=== PATIENT | male | born 1930 | race Caucasian/White ===

== ENCOUNTER 2017-08-17 04:10 | Inpatient (IN) | payer MEDICARE ==
[~2017-08-17] VITALS: Ht 177.8 cm; Wt 56.2 kg
[2017-08-17] MEDS ORDERED: OXYBUTYNIN CHLOR5 M1 PO (04:23)
[2017-08-17] MEDS ORDERED: ASPIRIN325 MG PO (04:23)
[2017-08-17] MEDS ORDERED: ASPIRIN81 MG PO (04:23)
[2017-08-17] MEDS ORDERED: CARBIDOPA-LEVO1 EACH PO (04:23)
[2017-08-17] MEDS ORDERED: ATORVASTATIN CA20 MG PO (04:23)
[2017-08-17] MEDS ORDERED: NEXIUM40 MG PO (04:23)
[2017-08-17] MEDS ORDERED: SODIUM CHLORIDE 0.9% 1000ML 1,000 ML IV STA (04:28)
[2017-08-17 04:37] LABS: BASOPHILS % 0.2 % (0.0-1.0); EOSINOPHILS # (AUTO) 0.1 (0.0-0.4); EOSINOPHILS % 0.9 % (0.0-6.0); HEMATOCRIT 31.8 % (38.2-49.6); LYMPHOCYTES # (AUTO) 0.9 (1.0-3.2); LYMPHOCYTES % 11.1 % (18.0-39.1); MEAN CORPUSCULAR HEMOGLOBIN 26.6 pg (28-32); MEAN CORPUSCULAR HGB CONC 31.4 g/dL (31-35); MEAN CORPUSCULAR VOLUME 84.6 fL (81-99); MONOCYTES # (AUTO) 0.7 (0.2-0.8); MONOCYTES % 8.8 % (4.4-11.3); NEUTROPHILS # (AUTO) 6.3 (2.1-6.9); NEUTROPHILS % 78.1 % (38.7-80.0); PLATELET COUNT 228 x10e3/uL (140-360); RED BLOOD COUNT 3.76 x10e6/uL (4.3-5.7)
[2017-08-17] MEDS ORDERED: SODIUM CHLORIDE 0.9% 1000ML 1,000 ML ONE (04:37)
[2017-08-17 04:48] LABS: INR 1.17
[2017-08-17 04:49] LABS: PARTIAL THROMBOPLASTIN TIME 34.6 seconds (23.8-35.5)
[2017-08-17 04:58] LABS: ALANINE AMINOTRANSFERASE 7 IU/L (0-55); ALBUMIN 2.8 g/dL (3.5-5.0); ALBUMIN/GLOBULIN RATIO 0.7 (0.8-2.0); ALKALINE PHOSPHATASE 103 IU/L (40-150); ANION GAP 12.6 mmol/L (8-16); BLOOD UREA NITROGEN 31 mg/dL (7-26); BUN/CREATININE RATIO 33 (6-25); CALCIUM 9.5 mg/dL (8.4-10.2); CARBON DIOXIDE 27 mmol/L (22-29); CHLORIDE 107 mmol/L (98-107); CREATINE KINASE 93 IU/L (30-200); CREATININE, SERUM 0.93 mg/dL (0.72-1.25); EST GLOMERULAR FILTRATION RATE > 60 ML/MIN (60-); GLUCOSE 101 mg/dL (74-118); MAGNESIUM 1.8 MG/DL (1.3-2.1); POTASSIUM 3.6 mmol/L (3.5-5.1); SODIUM 143 mmol/L (136-145)
--- NOTE | 2017-08-17 05:09 | Diagnostic Imaging Report ---
History:Altered mental status Comparison studies:None Technique: Axial images were obtained from the skull base to the vertex. Coronal and sagittal images reconstructed from the axial data. Intravenous contrast: None Findings: Scalp/skull: No abnormalities. Extra-axial spaces: No masses. No fluid collections. Brain sulci: Mildly prominent. Ventricles: Mild compensatory dilatation. No hydrocephalus. Parenchyma: Full hypodensities in the supratentorial white matter are small vessel ischemic changes. No masses, hemorrhage, acute or chronic cortical vascular insults. Sellar/suprasellar region: No abnormalities. Craniocervical junction: Patent foramen magnum. No Chiari one malformation. Incidental findings: Atherosclerotic calcifications in the carotid siphons . Mucosal thickening in the ethmoid and maxillary sinuses Impression: No acute abnormalities. Chronic findings: 1. Mild generalized volume loss. 2. Mild supratentorial white matter small vessel ischemic changes. Signed by: Dr. Kar Velasco M.D. on 08/17/2017 5:05 AM
[2017-08-17 05:11] LABS: B-TYPE NATRIURETIC PEPTIDE2 67.5 pg/mL (0-100)
[2017-08-17 05:18] LABS: THYROID STIMULATING HORMONE 1.084 uIU/mL (0.350-4.940)
--- NOTE | 2017-08-17 05:28 | Diagnostic Imaging Report ---
EXAMINATION: CHEST SINGLE (PORTABLE) INDICATION: Altered mental status COMPARISON: None FINDINGS: TUBES and LINES: None. LUNGS: Lungs are well inflated. There are atelectatic changes in the left lung base versus aspiration. There is mild prominence of the central pulmonary vasculature, consistent with pulmonary venous congestion. PLEURA: No pleural effusion or pneumothorax. HEART AND MEDIASTINUM: The cardiomediastinal silhouette is unremarkable. There are atherosclerotic calcifications within the aorta. BONES AND SOFT TISSUES: No acute osseous lesion. Soft tissues are unremarkable. UPPER ABDOMEN: No free air under the diaphragm. IMPRESSION: Airspace opacity in the left lung base compatible with atelectasis versus aspiration. Signed by: Dr. Hudson Graham M.D. on 08/17/2017 5:24 AM
[2017-08-17 06:17] LABS: CLARITY,URINE CLOUDY (CLEAR); COLOR,URINE YELLOW (YELLOW)
[2017-08-17 06:18] LABS: BILIRUBIN,URINE 1+ (NEGATIVE); KETONES,URINE TRACE (NEGATIVE); LEUKOCYTE ESTERASE ,URINE NEGATIVE (NEGATIVE); NITRITE,URINE NEGATIVE (NEGATIVE); PROTEIN,URINE DIPSTICK 1+ (NEGATIVE); URINE UROBILINOGEN 1 mg/dL (0.2 - 1)
[2017-08-17 06:22] LABS: BACTERIA,URINE FEW /HPF; EPITHELIAL CELLS,URINE MODERATE /LPF; RBC,URINE 0-5 /HPF (0-5)
[2017-08-17] MEDS: PIPER-TAZ 3.375 GM 100 ML IV SCH ×3 (06:52→17:35)
--- OUTSIDE RECORDS SUMMARY | 2017-08-17 07:14 | XMS REPORT ---
Author Author [facility] Address Unknown Phone Unavailable Care Team Providers Care Software Quality Assurance Specialist Name Role Phone DEVAN BERGER Unavailable Unavailable Problems This patient has no known problems. Allergies, Adverse Reactions, Alerts This patient has no known allergies or adverse reactions. Medications This patient has no known medications. Results Test Description Test Time Test Comments Text Results Atomic Results Result Comments CT BRAIN WO [place] [address] Patient Name: TARI PONCE MR #: [id number] : 1930 Age/Sex: 87/M Req #: [id number] Adm Physician: Ordered by: DEVAN BERGER MD Report #: [id number] Location: ER Room/Bed: Procedure: [id number] CT/CT BRAIN WO Exam Date: 08/17/17 Exam Time: 442 REPORT STATUS: Signed History:Altered mental status Comparison studies:None Technique: Axial images were obtained from the skull base to the vertex. Coronal and sagittal images reconstructed from the axial data. Intravenous contrast: None Findings: Scalp/skull: No abnormalities. Extra-axial spaces: No masses. No fluid collections. Brain sulci: Mildly prominent. Ventricles: Mild compensatory dilatation. No hydrocephalus. Parenchyma: Full hypodensities in the supratentorial white matter are small vessel ischemic changes. No masses, hemorrhage, acute or chronic cortical vascular insults. Sellar/suprasellar region: No abnormalities. Craniocervical junction: Patent foramen magnum. No Chiari one malformation. Incidental findings: Atherosclerotic calcifications in the carotid siphons . Mucosal thickening in the ethmoid and maxillary sinuses Impression: No acute abnormalities. Chronic findings: 1. Mild generalized volume loss. 2. Mild supratentorial white matter small vessel ischemic changes. Signed by: Dr. Kar Velasco M.D. on 08/17/2017 5: 05 AM Dictated By: KAR VELASCO MD, MD 050 Transcribed By: JOÃO on 050 COPY TO: DEVAN BERGER MD CHEST SINGLE (PORTABLE) [place] [address] Patient Name: TARI PONCE MR #: [id number] : 1930 Age/Sex: 87/M Req #: [id number] Adm Physician: Ordered by: DEVAN BERGER MD Report #: [id number] Location: ER Room/Bed: Procedure: [id number] DX/CHEST SINGLE (PORTABLE) Exam Date: 08/17/17 Exam Time: 0455 REPORT STATUS: Signed EXAMINATION: CHEST SINGLE ( PORTABLE) INDICATION: Altered mental status COMPARISON: None FINDINGS: TUBES and LINES: None. LUNGS: Lungs are well inflated. There are atelectatic changes in the left lung base versus aspiration. There is mild prominence of the central pulmonary vasculature, consistent with pulmonary venous congestion. PLEURA: No pleural effusion or pneumothorax. HEART AND MEDIASTINUM: The cardiomediastinal silhouette is unremarkable. There are atherosclerotic calcifications within the aorta. BONES AND SOFT TISSUES: No acute osseous lesion. Soft tissues are unremarkable. UPPER ABDOMEN: No free air under the diaphragm. IMPRESSION: Airspace opacity in the left lung base compatible with atelectasis versus aspiration. Signed by: Dr. Zaki Graham M.D. on 5:24 AM Dictated By: ZAKI PARKER MD 3 Transcribed By: JOÃO on 08/17/17523 COPY TO: DEVAN BERGER MD
[2017-08-17] MEDS: SODIUM CHLORIDE 0.9% 1000ML 1,000 ML IV SCH ×2 (08:20→21:27)
[2017-08-17] MEDS ORDERED: PANTOPRAZOLE 40 MG 10ML VIAL IV SCH (09:00)
[2017-08-17] MEDS: CARBIDOPA/LEVODOPA 10/100 TAB PO SCH ×3 (09:01→21:47)
[2017-08-17 11:38] VITALS: BP 187/71
[2017-08-17] MEDS ORDERED: PIPER-TAZ 3.375 GM 50 ML IV SCH (12:00)
[2017-08-17 12:32] VITALS: BP 154/78
[2017-08-17 13:41] VITALS: BP 154/78
[2017-08-17] MEDS: CLONIDINE HCL 0.2 MG TAB PO PRN (15:31)
[2017-08-17 15:32] VITALS: BP 162/67
--- NOTE | 2017-08-17 18:03 | History and Physical ---
HISTORY OF PRESENT ILLNESS: This patient is an 87-year-old white male with past medical history positive for Parkinson disease. Patient apparently came because he was feeling more lethargic and more confused than usual. He was found to have pneumonia, also dehydration and admitted to the hospital for IV fluids and IV antibiotic. REVIEW OF SYSTEMS: CARDIOVASCULAR: No chest pain or palpitation. RESPIRATORY: No shortness of breath. No cough. GASTROINTESTINAL: No nausea, vomiting or diarrhea. GENITOURINARY: No frequency and no dysuria. PAST MEDICAL HISTORY: Positive for Parkinson disease. PHYSICAL EXAMINATION: VITAL SIGNS: Blood pressure 162/67, temperature 98 degrees, heart rate 63 per minute, respiratory rate is 20 per minute, oxygen saturation 98%. HEART: Regular rhythm. No murmur. No extra sounds. LUNGS: Clear bilaterally. ABDOMEN: Soft. EXTREMITIES: Show no evidence of cyanosis, edema or trauma. EKG shows sinus rhythm with left bundle branch block No evidence of any ST segment elevation or depression. On the chest x-ray it showed air space opacity in the left lung base compatible with atelectasis versus amputation. Blood culture has been ordered. Report is pending. Also CT of the head showed no acute abnormalities. He has mild generalized volume loss. Mild supratentorial white matter small vessel ischemic changes. On the labs, we have CMP with a sodium 143, potassium 3.6, chloride 107. CO2 27. 0.6. BUN 31, creatinine 0.93. The GFR 60. Glucose 101. Lactic acid 6.8. Calcium 9.5. Magnesium 1.8. Total bilirubin 1.2. AST 20, ALT 7, alkaline phosphatase 103, creatinine kinase 93. CK-MB 1.30. Troponin 0.001. B-natriuretic peptide 6745. Total protein 6.8. Albumin 2.8. Globulin 4.0. Albumin globulin ratio 0.7. TSH of 1.084.. On the CBC white blood count 8.04, hemoglobin 10.0, hematocrit 31.8, platelet count 220,000. PT 14.0. INR 1.17. PTT 34.6. The urine showed no evidence of leukocytes, just white blood cells only. FINAL IMPRESSION: 1. Acute encephalopathy. 2. Aspiration pneumonia. 3. Acute renal failure. 4. Anemia of chronic disease. 5. Parkinson disease. 6. Uncontrolled hypertension. PLAN OF TREATMENT: Continue with normal saline at 100 mL an hour. Continue Zosyn 3.375 grams IV piggyback q.6 hours. Amlodipine 10 mg daily. Aspirin 81 mg daily. Lipitor 20 mg daily. Sinemet 1 tablet 3 times a day. Clonidine 0.2 mg q.4 h. for blood pressure 150/90. Oxybutynin 10 mg daily. Protonix 40 mg p.o. daily. We are going to get a neurology consult with Dr. Holm, if he comes here, and, if not, Dr. Roth, and they are going get physical and occupational therapy and speech therapy evaluation. Job#: [id number]
[2017-08-17 20:00] VITALS: BP 147/76
[2017-08-17] MEDS: ATORVASTATIN 20 MG TAB PO SCH (21:27)
[2017-08-17 23:24] VITALS: BP 147/76
[2017-08-18] VITALS (8 sets, daily range): BP systolic 140–183; BP diastolic 60–81
[2017-08-18] MEDS: PIPER-TAZ 3.375 GM 100 ML IV SCH ×4 (00:12→17:13)
[2017-08-18] MEDS: SODIUM CHLORIDE 0.9% 1000ML 1,000 ML IV SCH (02:54)
[2017-08-18] MEDS: CLONIDINE HCL 0.2 MG TAB PO PRN ×2 (05:57→08:33)
[2017-08-18 06:56] LABS: BASOPHILS % 0.5 % (0.0-1.0); EOSINOPHILS # (AUTO) 0.1 (0.0-0.4); EOSINOPHILS % 1.8 % (0.0-6.0); HEMATOCRIT 28.2 % (38.2-49.6); HEMOGLOBIN 8.9 g/dL (14.0-18.0); LYMPHOCYTES # (AUTO) 0.7 (1.0-3.2); LYMPHOCYTES % 10.1 % (18.0-39.1); MEAN CORPUSCULAR HEMOGLOBIN 26.8 pg (28-32); MEAN CORPUSCULAR HGB CONC 31.6 g/dL (31-35); MEAN CORPUSCULAR VOLUME 84.9 fL (81-99); MONOCYTES # (AUTO) 0.5 (0.2-0.8); NEUTROPHILS # (AUTO) 5.2 (2.1-6.9); NEUTROPHILS % 79.2 % (38.7-80.0); PLATELET COUNT 207 x10e3/uL (140-360); RED BLOOD COUNT 3.32 x10e6/uL (4.3-5.7); RED CELL DISTRIBUTION WIDTH 14.8 % (11.7-14.4)
[2017-08-18 07:30] LABS: ALANINE AMINOTRANSFERASE 7 IU/L (0-55); ALBUMIN 2.2 g/dL (3.5-5.0); ALBUMIN/GLOBULIN RATIO 0.7 (0.8-2.0); ALKALINE PHOSPHATASE 80 IU/L (40-150); ANION GAP 9.4 mmol/L (8-16); BLOOD UREA NITROGEN 21 mg/dL (7-26); BUN/CREATININE RATIO 26 (6-25); CALCIUM 8.6 mg/dL (8.4-10.2); CARBON DIOXIDE 26 mmol/L (22-29); CHLORIDE 110 mmol/L (98-107); EST GLOMERULAR FILTRATION RATE > 60 ML/MIN (60-); GLUCOSE 121 mg/dL (74-118); POTASSIUM 3.4 mmol/L (3.5-5.1); SODIUM 142 mmol/L (136-145)
[2017-08-18] MEDS ORDERED: ASPIRIN 81 MG CHEW TAB PO SCH (07:30)
[2017-08-18] MEDS: ASPIRIN 81 MG CHEW TAB PO SCH (08:32)
[2017-08-18] MEDS: PANTOPRAZOLE SOD 40 MG TABEC PO SCH (08:32)
[2017-08-18] MEDS: OXYBUTYNIN CHLORIDE XL 5 MG TAB PO SCH (08:33)
[2017-08-18] MEDS: AMLODIPINE BESYLATE 10 MG TAB PO SCH (08:33)
[2017-08-18] MEDS: CARBIDOPA/LEVODOPA 10/100 TAB PO SCH ×3 (08:33→20:59)
[2017-08-18] MEDS ORDERED: POTASSIUM CHLORIDE 20 MEQ TAB CR PO STA (11:48)
--- NOTE | 2017-08-18 13:03 | Progress Note ---
DATE: INTERNAL MEDICINE PROGRESS NOTE SUBJECTIVE: Patient is doing better now, more alert. PHYSICAL EXAM: VITAL SIGNS: Blood pressure 183/81. Temperature 96.8. Heart rate 51 per minute. Respiratory rate is 18 per minute. Oxygen saturation 97%. HEART: Shows regular rhythm. Normal S1 and S2 sounds. LUNGS: Show decreased breath sounds bilaterally. ABDOMEN: Soft. EXTREMITIES: Show no evidence of cyanosis, edema or trauma. BLOOD WORK: We have a BMP with a sodium 142, potassium 3.4, chloride 110, CO2 26, BUN 21, creatinine 0.80, glucose 121. On the CBC: White blood count 6.61, hemoglobin 8.9, hematocrit 28.2, platelet count 207,000. PT 14.0, PTT 34.6, INR 1.17. AST 15, ALT 7, total bilirubin 0.6, alkaline phosphatase 80. FINAL IMPRESSION: 1. Acute encephalopathy. 2. Aspiration pneumonia. 3. Acute renal failure. 4. Uncontrolled hypertension. 5. Chronic anemia. 6. Parkinson disease. 7. Physical deconditioning. PLAN OF TREATMENT: Continue Zosyn 3.375 grams IV piggyback q.6 hours. We are going to discontinue the IV fluids. Put him on lisinopril 20 mg daily because of the extremely high blood pressure. Continue Sinemet 1 tablet 3 times a day. Lipitor 20 mg daily. Amlodipine 10 mg daily. Protonix 40 mg daily. Clonidine 0.2 mg q.4 hours as needed. Oxybutynin 10 mg daily. Continue physical and occupational therapy, speech therapy evaluation. Job#: [id number] EV
[2017-08-18] MEDS: ATORVASTATIN 20 MG TAB PO SCH (20:59)
[2017-08-19] VITALS (8 sets, daily range): BP systolic 140–174; BP diastolic 64–79
[2017-08-19] MEDS: PIPER-TAZ 3.375 GM 100 ML IV SCH ×4 (00:20→17:30)
[2017-08-19] MEDS: CLONIDINE HCL 0.2 MG TAB PO PRN (06:21)
[2017-08-19 07:27] LABS: ANION GAP 10.7 mmol/L (8-16); BLOOD UREA NITROGEN 15 mg/dL (7-26); BUN/CREATININE RATIO 20 (6-25); CARBON DIOXIDE 27 mmol/L (22-29); CHLORIDE 107 mmol/L (98-107); CREATININE, SERUM 0.76 mg/dL (0.72-1.25); EST GLOMERULAR FILTRATION RATE > 60 ML/MIN (60-); GLUCOSE 109 mg/dL (74-118); POTASSIUM 3.7 mmol/L (3.5-5.1); SODIUM 141 mmol/L (136-145)
[2017-08-19] MEDS: PANTOPRAZOLE SOD 40 MG TABEC PO SCH (07:55)
[2017-08-19] MEDS: ASPIRIN 81 MG CHEW TAB PO SCH (07:55)
[2017-08-19] MEDS: CARBIDOPA/LEVODOPA 10/100 TAB PO SCH ×3 (08:16→21:46)
[2017-08-19] MEDS: LISINOPRIL 10 MG TAB PO SCH (08:16)
[2017-08-19] MEDS: AMLODIPINE BESYLATE 10 MG TAB PO SCH (08:16)
[2017-08-19] MEDS: OXYBUTYNIN CHLORIDE XL 5 MG TAB PO SCH (08:16)
[2017-08-19] MEDS ORDERED: LISINOPRIL 20 MG TAB PO SCH (09:00)
--- NOTE | 2017-08-19 14:17 | Consultation ---
DATE OF CONSULTATION: August 18, 2017 NEUROLOGY CONSULT NOTE HISTORY OF PRESENT ILLNESS: Mr. Negron is an 87-year-old man with past medical history significant for hypertension, hyperlipidemia, and Parkinson disease, who presented to [facility] on August 17, 2017 with worsening confusion and lethargy. The patient's , who provides a majority of the history, reports the patient "sleeps a lot with his Parkinson disease". However, the patient's is able to wake him easily. On Tuesday night, (August 16, 2017) and early Tuesday morning (August 17, 2017) the patient's was unable to awaken him to help him from his recliner to bed. Concerned by the patient's lack of responsiveness, his alerted emergency medical services and the patient was transported to the emergency center at [facility] for further evaluation and treatment. In the emergency center, the patient was found to be dehydrated. A routine chest x-ray revealed an airspace opacity at the left lung base suggestive of either atelectasis or aspiration pneumonia. Mr. Negron was admitted to the hospital for further evaluation and treatment. During this encounter, the patient's reports Mr. Negron is significantly improved when compared to the day of admission. She reports the patient is more alert and is talking more than he did yesterday. The patient's nurse gives a similar assessment. Mr. Negron was diagnosed with Parkinson's disease approximately 7 years ago. He does see a neurologist, Dr. Solis. Mr. Negron is treated with carbidopa/levodopa 10-100 mg by mouth 3 times daily. According to the patient's , the medicine does not significantly improve his symptoms. However, the patient's reports giving Mr. Negron his dose of carbidopa/levodopa with breakfast every morning. However, she often forgets to give the afternoon and evening doses of this medication. REVIEW OF SYSTEMS: Cough (nonproductive), nausea, constipation, baseline cognitive impairment, confusion, soft voice, impairment of balance and gait. Multiple falls within the past 12 months, resting tremor in the left arm, lethargy. Otherwise, a 12-point review of systems is negative. PAST MEDICAL HISTORY: Prior history of hypertension, hyperlipidemia, gastroesophageal reflux disease, Parkinson disease. PAST SURGICAL HISTORY: Bilateral cataract surgery. PAST HOSPITALIZATIONS: No prior hospitalizations. FAMILY HISTORY: The patient reports a strong family history of diabetes mellitus and coronary artery disease. SOCIAL HISTORY: The patient is . 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 Mr. Negron has a remote history of tobacco use it. He was a light smoker for approximately 10 years. He quit smoking 25 plus years ago. The patient reports drinking a beer rarely. There is no current or prior recreational drug use. HOME MEDICATIONS 1. Aspirin 325 mg by mouth daily. 2. Atorvastatin 20 mg by mouth at bedtime daily. 3. Carbidopa/levodopa 10 and 100 mg one tablet by mouth 3 times daily. 4. Nexium 40 mg by mouth daily. 5. Oxybutynin 10 mg by mouth daily. ALLERGIES: NO KNOWN DRUG ALLERGIES. THE PATIENT ALLERGIC TO SHELLFISH. NO KNOWN ALLRGIES TO LATEX. THE PATIENT IS ALLERGIC TO IODINE. PHYSICAL EXAMINATION VITAL SIGNS: Height 70 inches. Weight 124 lbs. BMI 17.8 kg per meter squared. Blood pressure 144/65 mmHg. Pulse 59 beats per minute. Respiratory rate 18 breaths per minute. Oxygen saturation 97% on room air. GENERAL: The patient is awake and alert, does not appear distressed. Thin. HEENT: Normocephalic, atraumatic. Pupils are surgical. Moist mucous membranes. NECK: Supple. No appreciable thyromegaly. No appreciable carotid bruits. CARDIOVASCULAR: S1, S2 regular, bradycardic. No murmurs, rubs or gallops. RESPIRATORY: Faint crackles at both lung bases posteriorly. EXTREMITIES: The skin is warm and dry. No clubbing, cyanosis or edema. The posterior tibial and dorsalis pedis pulses are 2+ and symmetric. SKIN: No rashes or lesions. NEUROLOGIC MEMORY/ATTENTION: The patient is awake and alert, oriented to person and place (hospital, city, county, state). The patient is not oriented to time or situation. CRANIAL NERVES: Cranial nerve I--not tested. Cranial nerve II, III, IV, --pupils are surgical. Extraocular movements intact, no nystagmus. Cranial nerve V--sensation to light touch is intact in the bilateral V1 through V3 distributions. Strength of the temporalis and masseter muscles is within normal limits. Cranial nerve VII--the face is symmetric as are all facial movements. Strength is within normal limits. Cranial nerve VII--hearing is markedly diminished to finger rub bilaterally. Cranial nerve IX, X--soft palate elevates equally and symmetrically. Cranial nerve XI--normal strength of the bilateral sternocleidomastoid and trapezius muscles. Cranial nerve XII--the tongue protrudes midline and moves symmetrically from side to side STRENGTH: Bulk is diminished and strength is 4/5 in the bilateral deltoids, biceps, triceps, wrist flexors and extensors, finger flexors and extensors, intrinsic hand muscles, hip flexors, knee flexors and extensors, ankle dorsiflexion and plantar flexion, and intrinsic foot muscles. Tone is increased in all 4 extremities with cogwheeling in both arms, left greater than right. DTRs: Deep tendon reflexes are 2+ and symmetric at the triceps, biceps, brachioradialis, and patellas. Deep tendon reflexes are 1+ and symmetric at the Achilles. Plantar responses are flexor bilaterally. SENSATION: Sensation is intact to light touch in both arms and both legs. CEREBELLAR: Mr. Negron has difficulty following instructions for the cerebellar examination. Vezosr-jgqq-ybpbha and heel-dugan movements are slowed. There is segmental hypokinesis with finger and toe tapping on the left. SPEECH: Hypotonic. Spontaneous speech is mildly dysarthric without aphasia. Repetition is intact. INVOLUNTARY MOVEMENTS: A resting tremor was not observed during this encounter. PRONATOR DRIFT: None. LABORATORY DATA: Sodium 142, potassium 3.4, chloride 110, carbon dioxide 26, anion gap 9.4, BUN 21, creatinine 0.80, estimated GFR greater than 60, BUN to creatinine ratio 26. Glucose 121. Calcium 8.6. Total bilirubin 0.6, AST 15, ALT 7, alkaline phosphatase 80, total protein 5.5. Albumin 2.2, globulin 3.3. Albumin to globulin ratio 0.7. Lactic acid 6.8, B-natriuretic peptide 67.5. TSH 1.084. The CBC with differential and platelets reveals a white blood cell count of 6.61 with 79.2% neutrophils, with 10.1% lymphocytes, 7.0% monocytes, 1.8% eosinophils, 0.5% basophils, the hemoglobin/hematocrit 8.9 and 28.2, respectively. Platelet count is 207,000. PT 14.0, INR 1.27, PTT 34.6. Urinalysis reveals cloudy urine with 1+ protein, trace ketones, 1+ bilirubin. Negative leukocyte esterase, 11 to 20 white blood cells with few bacteria. DIAGNOSTIC STUDIES 1. Chest x-ray, August 17, 2017: Airspace opacity in the left lung base compatible with atelectasis versus aspiration. 2. CT of the brain without contrast, August 17, 2017: On my review, there is no evidence of recent large territorial ischemia, hemorrhage, mass or mass affect. There is mild diffuse cerebral atrophy, appropriate for age. There are findings compatible with mild chronic small vessel ischemic disease. ASSESSMENT AND PLAN: Mr. Negron is an 87-year-old man with past medical history significant for Parkinson disease with baseline cognitive impairment, admitted to [facility] with worsening confusion and lethargy. Upon admission, the patient was found to be dehydrated. Findings on a routine chest x-ray were suspicious for pneumonia. The patient's neurological examination is significant for orientation to person and place only, mild generalized weakness with increased tone in all 4 extremities, hypophonia, and mild dysarthria. The patient's laboratory data and diagnostic studies have been reviewed and are documented above. 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 His recently worsening confusion and lethargy may be attributed to dehydration and underlying infection (pneumonia). Both the patient's and his nurse report the patient is more awake and alert and talkative today as compared to the day of admission. This after the patient has received intravenous fluids and antibiotics for probable pneumonia. The patient's CT of the brain without contrast performed on August 17, 2017 does not indicate acute [employer] pathology contributing to his metabolic encephalopathy. RECOMMENDATIONS 1. Routine laboratory data will be obtained to exclude other possible causes of worsening confusion. This will include: A urine drug screen, ammonia level, vitamin B12 level, and RPR. 2. There has been no activity suspicious for seizures by history or by examination. Evaluation with a routine EEG will be deferred. 3. Parkinson's disease: Continue carbidopa/levodopa 10 and 100 mg by mouth 3 times daily. Mr. Negron has a scheduled followup appointment with his outpatient neurologist on Thursday, August 24, 2017. 4. Utilize environmental cues to limit the occurrence of delirium. The light and television should be turned on during the day. The light and television should be turned off at night when the patient should be sleeping. Please write the date, day of the week, month, and year on the dry-erase board in the patient's room. The names of the patient's physician or physicians, nurse, and other medical personnel should be written on the dry-erase board as well. Any anticipated consultations or diagnostic studies to be done on a given a day should be written on the dry-erase board. 5. Defer treatment of the remaining medical comorbidities to the primary and other services. Thank you for this consultation. I will continue to follow this patient while he remains in the hospital. TIME SPENT: 50 minutes. Job#: [id number] CQ [id number]
--- NOTE | 2017-08-19 16:09 | Progress Note ---
DATE: INTERNAL MEDICINE PROGRESS NOTE SUBJECTIVE: She is doing better right now, much more alert, participating in physical therapy and eating better. PHYSICAL EXAM: VITAL SIGNS: Blood pressure 149/70, temperature 95.8, heart rate 54 per minute, respiratory rate is 20 per minute, oxygen saturation 98%. HEART: Shows regular rhythm. Normal S1 and S2 sounds. LUNGS: Clear bilaterally. ABDOMEN: Soft. EXTREMITIES: Show no evidence of cyanosis, edema or trauma. On the BMP: Sodium 141, potassium 3.7, chloride 107, CO2 27, BUN 15, creatinine 0.76, glucose 109. CBC showed white blood count 6.61, hemoglobin 8.9, hematocrit 28.2, platelet count 207,000. PT 14.0, INR 1.17, PTT 34.6. AST 15, ALT 7, total bilirubin 0.6, alkaline phosphatase 80. FINAL IMPRESSION: 1. Acute encephalopathy, which is resolving. 2. Aspiration pneumonia. 3. Acute renal failure. 4. Essential hypertension, which is under better control. 5. Anemia of chronic disease. 6. Severe Parkinson disease. 7. Physical deconditioning. PLAN OF TREATMENT: Continue IV Zosyn. Continue IV fluids. Lisinopril has been decreased to 10 mg daily. Sinemet 1 tablet 3 times a day. Lipitor 20 mg daily. Amlodipine 10 mg daily. Protonix 40 mg daily. Clonidine 0.2 mg q.4 h. as needed. Oxybutynin 10 mg daily. Continue physical and occupational therapy. Tentative discharge on Tuesday with home health for physical and occupational therapy. She is doing well. Job#: [id number] EV
[2017-08-19] MEDS: ATORVASTATIN 20 MG TAB PO SCH (21:46)
[2017-08-20] VITALS (7 sets, daily range): BP systolic 133–184; BP diastolic 68–86
[2017-08-20] MEDS: PIPER-TAZ 3.375 GM 100 ML IV SCH ×4 (00:04→17:26)
[2017-08-20] MEDS: CLONIDINE HCL 0.2 MG TAB PO PRN ×3 (00:04→22:23)
[2017-08-20] MEDS: PANTOPRAZOLE SOD 40 MG TABEC PO SCH (07:45)
[2017-08-20] MEDS: ASPIRIN 81 MG CHEW TAB PO SCH (07:45)
[2017-08-20] MEDS: LISINOPRIL 10 MG TAB PO SCH (08:20)
[2017-08-20] MEDS: OXYBUTYNIN CHLORIDE XL 5 MG TAB PO SCH (08:20)
[2017-08-20] MEDS: AMLODIPINE BESYLATE 10 MG TAB PO SCH (08:20)
[2017-08-20] MEDS: CARBIDOPA/LEVODOPA 10/100 TAB PO SCH ×3 (08:20→21:15)
[2017-08-20] MEDS: ATORVASTATIN 20 MG TAB PO SCH (21:15)
[2017-08-20] MEDS: ALBUTEROL/IPRATROPIUM 3 ML NEB NEB SCH (23:09)
[2017-08-21] VITALS (7 sets, daily range): BP systolic 114–146; BP diastolic 56–79
[2017-08-21] MEDS: PIPER-TAZ 3.375 GM 100 ML IV SCH ×5 (00:45→23:19)
[2017-08-21] MEDS: ALBUTEROL/IPRATROPIUM 3 ML NEB NEB SCH ×2 (03:28→06:31)
[2017-08-21] MEDS: ASPIRIN 81 MG CHEW TAB PO SCH (07:25)
[2017-08-21] MEDS: PANTOPRAZOLE SOD 40 MG TABEC PO SCH (07:25)
[2017-08-21] MEDS: OXYBUTYNIN CHLORIDE XL 5 MG TAB PO SCH (08:10)
[2017-08-21] MEDS: CARBIDOPA/LEVODOPA 10/100 TAB PO SCH ×3 (08:10→22:24)
[2017-08-21] MEDS: LISINOPRIL 10 MG TAB PO SCH (08:10)
[2017-08-21] MEDS: AMLODIPINE BESYLATE 10 MG TAB PO SCH (08:10)
[2017-08-21] MEDS ORDERED: ALBUTEROL/IPRATROPIUM 3 ML NEB NEB PRN (12:00)
[2017-08-21] MEDS: ATORVASTATIN 20 MG TAB PO SCH (22:24)
[2017-08-22] VITALS (9 sets, daily range): BP systolic 126–162; BP diastolic 60–83
[2017-08-22] MEDS: CLONIDINE HCL 0.2 MG TAB PO PRN (00:46)
[2017-08-22] MEDS: PIPER-TAZ 3.375 GM 100 ML IV SCH ×3 (06:07→18:06)
[2017-08-22] MEDS: OXYBUTYNIN CHLORIDE XL 5 MG TAB PO SCH (09:15)
[2017-08-22] MEDS: PANTOPRAZOLE SOD 40 MG TABEC PO SCH (09:15)
[2017-08-22] MEDS: CARBIDOPA/LEVODOPA 10/100 TAB PO SCH ×3 (09:15→21:00)
[2017-08-22] MEDS: AMLODIPINE BESYLATE 10 MG TAB PO SCH (09:15)
[2017-08-22] MEDS: ASPIRIN 81 MG CHEW TAB PO SCH (09:15)
[2017-08-22] MEDS: LISINOPRIL 10 MG TAB PO SCH (09:15)
--- NOTE | 2017-08-22 18:18 | Discharge Summary ---
HISTORY OF PRESENT ILLNESS/HOSPITAL COURSE: An 87-year-old male with past medical history positive for hypertension, hyperlipidemia, Parkinson disease presented to the [facility] on August 17, 2017, with worsening confusion and lethargy. Patient was found to have aspiration pneumonia, uncontrolled hypertension, acute renal failure, anemia of chronic disease, severe Parkinson disease. Patient was started on broad-spectrum IV antibiotics, physical therapy, occupational therapy. His mental status started to improve. His blood pressure started to improve also after we started on an aggressive antihypertensive regimen. Patient is afebrile, white blood count is normal, and patient is going to try to go home between today or tomorrow morning. manager radiation is currently dealing with [employer] to try to arrange for home health which, by the way, [facility] his [facility] stay at this hospital this time, which is very unreasonable, which I am going to appeal tomorrow. PHYSICAL EXAM: VITAL SIGNS: Blood pressure 126/83, temperature 97.8, heart rate 58 per minute, respiratory rate 18 per minute, oxygen saturation 97%. HEART: Shows regular rhythm. Normal S1 and S2 sounds. LUNGS: Clear bilaterally. ABDOMEN: Soft. EXTREMITIES: Show no evidence of cyanosis, edema or trauma. On the BMP: Sodium 141, potassium 3.7, chloride 107, CO2 27, BUN 15, creatinine 0.76, glucose 109. On the CBC: White blood count of 6.61, hemoglobin 8.9, hematocrit 28.2, platelet count 207,000. PT 14.0, INR 1.17, PTT 34.6. AST 15, ALT 7, total bilirubin 0.6, alkaline phosphatase of 80. FINAL IMPRESSIONS: 1. Acute encephalopathy which is resolving. 2. Aspiration pneumonia. 3. Acute renal failure which is resolved. 4. Uncontrolled hypertension which is under better control now. 5. Anemia of chronic disease. 6. Severe Parkinson disease. 7. Physical deconditioning. PLAN OF TREATMENT: The patient is going to be discharged on Augmentin 875 mg twice a day. Continue Sinemet 3 times a day. Amlodipine 10 mg daily. Protonix 40 mg daily. Clonidine 0.2 mg q.4 hours as needed for hypertension. Oxybutynin 10 mg daily. Aspirin 81 mg daily. Lisinopril 10 mg daily. Lipitor 20 mg daily. He is going to follow up with Dr. Quinn, cardiology, and with his neurologist, Dr. Solis. DIET: A low-salt diet. manager radiation is working with [employer] to try to arrange for home health for physical and occupational therapy plus equipment that the patient needs. LORELEI GONZALES MD Job#: [id number] EV
[2017-08-22] MEDS: ATORVASTATIN 20 MG TAB PO SCH (21:00)
[2017-08-23 04:07] VITALS: BP 137/63
[2017-08-23] MEDS: PIPER-TAZ 3.375 GM 100 ML IV SCH ×2 (05:42)
[2017-08-23 07:15] VITALS: BP 104/55
[2017-08-23 07:57] VITALS: BP 104/55
[2017-08-23] MEDS: LISINOPRIL 10 MG TAB PO SCH (09:00)
[2017-08-23] MEDS: AMLODIPINE BESYLATE 10 MG TAB PO SCH (09:00)
[2017-08-23] MEDS: ASPIRIN 81 MG CHEW TAB PO SCH (09:05)
[2017-08-23] MEDS: PANTOPRAZOLE SOD 40 MG TABEC PO SCH (09:05)
[2017-08-23] MEDS: CARBIDOPA/LEVODOPA 10/100 TAB PO SCH (09:05)
[2017-08-23] MEDS: OXYBUTYNIN CHLORIDE XL 5 MG TAB PO SCH (09:05)
== END 2017-08-23 10:40 | disposition home health service (06) | DRG 177 ==
LOC: ER 04:10 → ERHOLD 06:54 → IMCU 06:54 → OBSVTOIN 17:10 → MED/SURG3 17:33
PROVIDERS: ADMIT Internal Medicine; ATTEND Internal Medicine
DX: J69.0 Pneumonitis due to inhalation of food and vomit (principal); G93.40 Encephalopathy, unspecified; G93.41 Metabolic encephalopathy; F02.81 Dementia in other diseases classified elsewhere, unspecified severity, with behavioral disturbance; N17.9 Acute kidney failure, unspecified; I10 Essential (primary) hypertension; E78.5 Hyperlipidemia, unspecified; G20 Parkinson's disease; E86.0 Dehydration; F17.210 Nicotine dependence, cigarettes, uncomplicated; G31.83 Neurocognitive disorder with Lewy bodies; D63.8 Anemia in other chronic diseases classified elsewhere
CPT/HCPCS: 36415; 70450; 71045; 80048; 80053; 81001; 82140; 82550; 82553; 82607; 83605; 83735; 83880; 84443; 84484; 85025; 85610; 85730; 86592; 87040; 87086; 93005; 94640; 96360; 96367; 99284; J2543; J7030

== ENCOUNTER 2018-04-19 09:53 | Outpatient (RCR) | payer MEDICARE ==
--- NOTE | 2018-04-04 14:38 | NUR ---
Voice/Speech Evaluation Patient Name: Moisés NegronDOB: [birth year] Age/Sex: 88/maleOrdering Physician: Arturo Cifuentes M.D. History: Mr. Negron is an 88year old male seen at the [facility] for a Voice and Speech Evaluation. Past medical history includes hyperlipidemia, Parkinsons Disease, benign essential hypertension, and GERD. The patient was formally diagnosed with Parkinsons Disease approximately 8 years ago. Pts spouse reported the first indications of Parkinsonism were shaking hands and decreased balance and walking patterns. Mr. Negron described his voice as low in volume with poor strength and articulation. He stated that people ask him to repeat himself constantly and he is less than 25% understandable to both familiar and unfamiliar listeners. 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 Current medications include atorvastatin, carbidopa, esomeprazole, linzess, oxybutynin chloride, and rasagiline. Mr. Negron and his spouse reported frequent difficulty with swallowing. Mr. Negron was admitted to [facility] in July,, with PNA. At the time an objective eval of swallow safety was not recommended. Since that time, Mr. Negron reported an increase in frequency of coughing and throat clearing with foods. During the interview portion of the evaluation, pt was noted to clear his throat frequently, experience trace anterior spillage of saliva on the left, and demonstrate wet vocal quality. Pt has reportedly lost over 50 pounds over the last several years. Patient/family Goal: to be understood when he speaks Evaluation Results: Acoustic measures: Sound Pressure Level (SPL, acoustic correlate of vocal loudness) measured with a sound level meter at a distance of 40 cm from mouth during 3 voice and speech tasks revealed the following SPL numbers: AverageRangeAdult Male Norm SUSTAINED VOWELS:69 dB63-76 dB80-85 dB READIN dB57-68 dB80-85 dB CONVERSATION:63 dB60-66 dB80-85 dB LENGTH OF SUSTAINED VOWEL13 eherpxi28-31 bgn32-60 seconds These results represented conversational vocal SPL levels and reduced vocal intonation that likely significantly reduce Mr. Mcarthur speech intelligibility and communicative effectiveness. He also has difficulty with vocal fading and reduced diaphragmatic support, lending to quiet speech. Perceptual measures: Mr. Mcarthur functional speech intelligibility is reduced 75% of the time. The patient reported that he is not loud enough in conversation 90% of the time. Completion of the Voice Handicap Index (VHI) reveals a perception of a severe voice disorder. Oral Motor Examination: An oral motor speech exam revealed the structures and function of Mr. Mcarthur speech mechanism to be within normal limits. Average pitch range for sustained vowel is 123-221 Hz. Normal pitch range for adult males is 85-300 Hz. Stimulability Testing: Stimulability testing was completed to determine Mr. Mcarthur stimulability for the [facility] LOU[facility] ([facility]) program. With stimulation and cues to increase loudness, Mr. Negron maintained vocal loudness during sustained vowel phonation at 83 dB, and increased his speech loudness in functional phrases to 84 dB. Length of sustained phonation was 10 seconds. Vocal quality improved with increased loudness. 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 Voice deficits included reduced loudness, reduced pitch range, and hoarse vocal quality, which contributed to an overall decrease in speech intelligibility. Based on stimulability testing, Mr. Negron appears to be an excellent candidate for the [facility]T [facility]OU[facility] program. He falls below average speech production of adult males of 80-85 dB. He would benefit from training in [facility]SVT LOU[facility] to improve speech production including duration of speech, intelligibility, and participation in conversation in social situations. Prognosis: Good for goals secondary to high level of patient motivation Recommendations: 1. It is recommended that Mr. Negron participate in the [facility]SVT [facility] program, which is comprised of 16 intensive sessions (4 days per week for 4 weeks; 60 minute sessions) of voice treatment. 2.Recommend modified barium swallow study to r/o aspiration and determine if treatment is indicated. Long-Term Goal: Patient will use a loud voice to communicate effectively in daily interactions with family and friends with independence. Short-Term Goals (first 2 weeks): 1.Patient will increase vocal loudness during sustained phonation to reach a target sound pressure level of 80 dB with minimal cues measured at 40 cm from SPL instrument. 2.Patient will increase length of sustained vowel to 10-15 seconds with minimal assistance. 3.Patient will increase pitch range of sustained vowel to 85-300 Hz with minimal assistance. 4.Pt will produce common, functional phrases to promote carry-over of techniques into the home environment at a target sound pressure level of 80 dB with minimal cues measured at 40 cm from SPL instrument. 5.Patient will increase vocal loudness to reach a target sound pressure level of 80 dB while reading at the word and sentence level with minimal cues measured at 40 cm from SPL instrument. 6.Patient will increase vocal loudness to reach a target sound pressure level of 80 dB during simple, structured conversational speech with minimal cues measured at 40 cm from SPL instrument. Short-Term Goals (next 2 weeks): 1.Patient will reach a target sound pressure level of 80-85 dB measured at 40 cm from SPL instrument during sustained phonation with minimal to no cues to increase loudness and to increase duration of phonation. 2.Patient will increase length of sustained vowel to 10-15 seconds with minimal to no cues. 3.Patient will increase pitch range of sustained vowel to 85-300 Hz with minimal to no cues. 4.Pt will produce common, functional phrases to promote carry-over of techniques into the home environment at a target sound pressure level of 80 dB with minimal to no cues measured at 40 cm from SPL instrument. 5.Patient will increase vocal loudness to read a target sound pressure level of 80 dB during more complex paragraph level reading with minimal cues measured at 40 cm from WEBBING SUPERVISOR instrument. 6.Patient will increase vocal loudness to reach a target sound pressure level of 80 dB during structured and unstructured conversational speech with minimal to no cues measured at 40 cm from SPL instrument. Yesica Alexander M.A. CCC-WEBBING SUPERVISOR LSVT LOUD Certified Clinician Date of Eval: 04/04/18 Voice Evaluation X 59 minutes G-code Modifiers: Current: [id number] Goal: [id number] justification: pt report, observation, outcome survey, objective measurements NOMS Voice Level 3
[~2018-04-19 09:53] MED LIST: ASPIRIN325 MG PO; ASPIRIN81 MG PO; ATORVASTATIN CA20 MG PO; CARBIDOPA-LEVO1 EACH PO; NEXIUM40 MG PO; OXYBUTYNIN CHLOR5 M1 PO
== END 2018-04-24 ==
LOC: ST 09:53
PROVIDERS: ATTEND Family Medicine
DX: R47.9 Unspecified speech disturbances (principal); G20 Parkinson's disease; I10 Essential (primary) hypertension; K21.9 Gastro-esophageal reflux disease without esophagitis; E78.5 Hyperlipidemia, unspecified
CPT/HCPCS: 92507 ×9; 92524; 97139; G8999; G9186

== ENCOUNTER → 2018-04-21 | Outpatient (CLI) | payer MEDICARE ==
--- NOTE | 2018-04-27 16:48 | Diagnostic Imaging Report ---
PROCEDURE: X-RAY MODIFIED BARIUM SWALLOW COMPARISON: None. INDICATION: Dysphagia Radiation Details: Fluoroscopy time: 1.9 minutes Cumulative dose: 6.3 mGy Dose area product: 2.1 Gy.cm2 DISCUSSION: Fluoroscopic examination was performed in conjunction with speech pathology during swallowing a variety of thin and thick liquid consistencies. Provided images demonstrate penetration and aspiration. Moderate residue is also noted. CONCLUSION: Modified barium swallow demonstrating penetration and aspiration. Please refer to the speech pathology report for further details. Signed by: Dr. Paddy Berkowitz MD on 04/27/2018 4:45 PM
== END ==
LOC: DX 11:22
PROVIDERS: ATTEND Family Medicine
DX: R13.10 Dysphagia, unspecified (principal); G20 Parkinson's disease; I10 Essential (primary) hypertension; K21.9 Gastro-esophageal reflux disease without esophagitis; E78.5 Hyperlipidemia, unspecified
CPT/HCPCS: 74230; 92611; G8996; G8997; G8998

== ENCOUNTER 2018-04-26 10:50 | Outpatient (RCR) | payer MEDICARE ==
--- NOTE | 2018-04-26 17:42 | NUR ---
Discharge Summary S.Pt seen with spouse present. Pt reported completion of his homework. Spouse reported pt has continued to struggle and is not making any progress at home. O.Pt seen for [facility] ([facility] LOU[facility]) secondary to a moderate voice disorder. Short-Term Goals (first 2 weeks) and progress follow: 1.Patient will increase vocal loudness during sustained phonation to reach a target sound pressure level of 80 dB with minimal to no cues measured at 40 cm from SPL instrumentpt produced sustained phonation at an average of 79 dB measured 40 cm from SPL instrument (baseline 69 dB). 2.Patient will increase length of sustained vowel to 10-15 seconds with minimal to no cuespt produced sustained phonation for an average of 8.1 seconds (baseline 13 seconds). 3.Patient will increase pitch range of sustained vowel to 85-300 Hz with minimal to no cuespt produced sustained phonation at an average range of 107-350 Hz (baseline 123-221 Hz). 4.Pt will produce common, functional phrases to promote carry-over of techniques into the home environment at a target sound pressure level of 80 dB with minimal to no cues measured at 40 cm from SPL instrumentnot addressed (73 dB last time addressed, baseline 65 dB). 5.Patient will increase vocal loudness to reach a target sound pressure level of 80 dB during more complex paragraph level reading with minimal cues measured at 40 cm from SPL instrumentnot addressed (71 dB last time addressed, baseline 65 dB). 6.Patient will increase vocal loudness to reach a target sound pressure level of 80 dB during structured and unstructured conversational speech with minimal to no cues measured at 40 cm from SPL instrumentnot addressed ( 66dB last time addressed, baseline 63 dB). Near the end of the session pts spouse reported that they cannot continue to attend therapy due to the out of pocket expense associated with the new insurance year. Discussed how it may be best at this juncture to discontinue LSVT since the patient is not demonstrating any carry-over into the home environment and instead focus on swallow therapy. Reviewed results of modified barium swallow (MBS) study completed 04/21/18 and that pt has moderate pharyngeal dysphagia. Discussed frequency of therapy and that pt could attend 2-3 times per week rather than 4 times per week as required by LSVT. Pts spouse reported she would discuss it with her children but at this time requested that all future appointment be cancelled. A.Pt has demonstrated excellent effort during therapy but has not made significant gain in loudness outside of the therapy room over the last 30 days. Pts spouse agrees, reporting no carry-over into the home environment. It was agreed that LSVT would be discontinued at this time due to lack of progress and pts limited financial resources. Extensive education completed as indicated with pt/spouse indicating understanding. P.Will discharge from LSVT at this time. Recommend dysphagia therapy with traditional exercises and Neuromuscular Electrical Stimulation (NMES) as outlined on MBS report completed 04/21/18. Manish Bhatti CCC-CHIP FRIER LSVT LOUD Certified Clinician Date of Session: 04/26/18 Speech Treatment X 60 minutes G-code Modifiers: Current: [id number] Goal: [id number] Discharge: [id number] NOMS Voice Level 3
[2018-05-23] MEDS ORDERED: AZILECT1 MG PO (16:21)
== END 2018-05-25 ==
LOC: ST 10:50
PROVIDERS: ATTEND Family Medicine
DX: R47.9 Unspecified speech disturbances (principal); R13.13 Dysphagia, pharyngeal phase
CPT/HCPCS: 92507; 97139; G9171; G9172; G9173

== ENCOUNTER 2018-05-23 15:20 | Inpatient (IN) | payer MEDICARE ==
[~2018-05-23] VITALS: Ht 172.7 cm; Wt 50.9 kg
--- OUTSIDE RECORDS SUMMARY | 2018-05-23 15:23 | XMS REPORT | Encounter Summary ---
Author Organization Unknown Address [address] [place] [address] Phone [phone] Care Team Providers Care Computer Programming Manager Name Role Phone Dr. Arturo Romero 3 [phone] Arturo Cha MD 3 [phone] Rad Augustine MD 82 [phone] Sunitha Negron (Spouse) 62 [phone] Travis Do MD 105 [phone] Kam Grove MD 111 [phone] Vishal Ingram MD 114 [phone] Jan Beyer MD 118 [phone] Alex Singh DPM 120 [phone] Ann Roth MD 129 [phone] Reason for Visit other - see typed reason Instructions 1. Abnormal gait due to muscle weakness home health referral 2. Malnutrition (calorie) 3. Parkinson's disease 4. Stricture of artery 5. Aspiration of food Discussion Note: None recorded. Patient educational handouts: No information available. Plan of Care Reminders Provider Appointments Return to Office on or around 06/21/2018 Arturo Cifuentes MD Lab None recorded. Referral Home Health Referral 05/19/2018 Transitions Home Health Orders Procedures None recorded. Surgeries None recorded. Imaging None recorded. Medications Name Start Date QOD atorvastatin 20 mg tablet Take 1 tablet every day by oral route in the evening. carbidopa 10 mg-levodopa 100 mg tablet Take 2 tablets 3 times a day by oral route. esomeprazole magnesium 40 mg capsule,delayed release Take 1 capsule every day by oral route. Linzess 145 mcg capsule TAKE ONE CAPSULE BY MOUTH EVERY DAY NEEDED oxybutynin chloride ER 10 mg tablet,extended release 24 hr TAKE 1 TABLET 2 TIMES DAILYAS DIRECTED rasagiline 1 mg tablet QD Medications Administered None recorded. Vitals Height Weight BMI Blood Pressure 5 ft 4 in 110/64 mm[Hg] Lab Results None recorded. Allergies Code Code System Name Reaction Severity Status Onset 5933 RxNorm Iodine Active 126618 RxNorm Phenergan Active Shellfish Derived Active Problems Name Status Onset Date Source Mixed Hyperlipidemia Active 05/04/2016 Benign Essential Hypertension Active 05/04/2016 Gastroesophageal Reflux Disease without Esophagitis Active 05/04/2016 Constipation Active 05/25/2016 Urinary Incontinence Active 05/25/2016 Blood Chemistry Abnormal Active 05/25/2016 Body Mass Index Less than 20 Active 10/08/2016 High Hemoglobin a1C Level Active 11/26/2016 Hyperlipidemia Active Parkinson's Disease Active Hypertensive Disorder Active Acid Reflux Active Procedures Date Name Performed by 04/17/2018 Screening for Occult Blood in Feces Information not available Vaccine List Vaccine Type influenza, high dose seasonal 05/04/20160.5 mL 02/08/20170.5 mL 01/26/20180.5 mL pneumococcal conjugate PCV 13 05/04/20160.5 mL pneumococcal polysaccharide PPV23 12/12/20170.5 mL Tdap 05/25/20160.5 mL zoster 05/25/20160.65 mL Social History Smoking Status Former Smoker Past Encounters 05/19/2018 Abnormal Gait Due to Muscle Weakness; Malnutrition (Calorie); Parkinson's Disease; Stricture of Artery; Aspiration of Food Arturo Cifuentes MD: [address] [place] [address], Ph. History of Present Illness Note: is requesting home health referral. He had a fall at home 3 days ago while dressing. He is not eating well (poor appetite) Lost 4 lbs in 2 months. Generalized weakness getting progressively worse. Recent swallow study showed aspiration. He needs assistance with the ADLs. Review of Systems Comprehensive General Adult ROS Reported By: Patient Constitutional: Constitutional: no fever Cardiovascular: Cardiovascular: no chest pain, no palpitations, no lightheadedness Respiratory: Respiratory: no cough, no wheezing, no shortness of breath Gastrointestinal: Gastrointestinal: no abdominal pain, no nausea, no vomiting, no diarrhea Genitourinary: Genitourinary: no difficulty urinating, no hematuria Musculoskeletal: Musculoskeletal: no swelling in the extremities Neurologic: Neurologic: no loss of consciousness, no headaches Physical Exam General Adult Exam (male) Reported By: Patient Constitutional: General Appearance: too thin; Masked facies. Level of Distress: NAD. Ambulation: in wheelchair Psychiatric: Insight: poor insight. Mental Status: abnormal affect. Orientation: not oriented to time, not oriented to place, not oriented to person. Memory: recent memory abnormal, remote memory abnormal Eyes: Lids and Conjunctivae: non-injected, no discharge ENMT: Lips, Teeth, and Gums: no mouth or lip ulcers Neck: Neck: supple, trachea midline. Lymph Nodes: no cervical LAD Lungs: Respiratory effort: no dyspnea. Auscultation: breath sounds normal Cardiovascular: Heart Auscultation: RRR, normal S1, normal S2, no murmurs Musculoskeletal:: Motor Strength and Tone: hypotonicity. Joints, Bones, and Muscles: limited ROM. Extremities: no edema Neurologic: Gait and Station: ; Unstable, not able to walk without assistance. Coordination and Cerebellum: resting tremor
[2018-05-23] MEDS ORDERED: AZILECT1 MG PO (16:21)
[2018-05-23 16:23] LABS: BASOPHILS % 0.5 % (0.0-1.0); EOSINOPHILS # (AUTO) 0.1 (0.0-0.4); EOSINOPHILS % 1.7 % (0.0-6.0); HEMOGLOBIN 11.3 g/dL (14.0-18.0); LYMPHOCYTES # (AUTO) 0.8 (1.0-3.2); LYMPHOCYTES % 18.6 % (18.0-39.1); MEAN CORPUSCULAR HEMOGLOBIN 26.8 pg (28-32); MEAN CORPUSCULAR HGB CONC 32.3 g/dL (31-35); MEAN CORPUSCULAR VOLUME 83.1 fL (81-99); MONOCYTES # (AUTO) 0.3 (0.2-0.8); MONOCYTES % 7.5 % (4.4-11.3); PLATELET COUNT 169 x10e3/uL (140-360); RED BLOOD COUNT 4.21 x10e6/uL (4.3-5.7); RED CELL DISTRIBUTION WIDTH 15.5 % (11.7-14.4)
[2018-05-23 16:34] LABS: INR 0.86; PROTHROMBIN TIME 12.5 seconds (11.9-14.5)
[2018-05-23 16:35] LABS: PARTIAL THROMBOPLASTIN TIME 31.2 seconds (23.8-35.5)
[2018-05-23 16:37] LABS: BILIRUBIN,URINE NEGATIVE (NEGATIVE); CLARITY,URINE SL CLOUDY (CLEAR); COLOR,URINE YELLOW (YELLOW); KETONES,URINE NEGATIVE (NEGATIVE); LEUKOCYTE ESTERASE ,URINE NEGATIVE (NEGATIVE); NITRITE,URINE NEGATIVE (NEGATIVE); PROTEIN,URINE DIPSTICK TRACE (NEGATIVE); URINE UROBILINOGEN 0.2 mg/dL (0.2 - 1)
[2018-05-23 16:41] LABS: ALBUMIN 3.9 g/dL (3.5-5.0); ALBUMIN/GLOBULIN RATIO 1.7 (0.8-2.0); ALKALINE PHOSPHATASE 62 IU/L (40-150); ANION GAP 16.1 mmol/L (8-16); BLOOD UREA NITROGEN 42 mg/dL (7-26); BUN/CREATININE RATIO 42 (6-25); CALCIUM 9.5 mg/dL (8.4-10.2); CARBON DIOXIDE 25 mmol/L (22-29); CHLORIDE 100 mmol/L (98-107); CREATINE KINASE 39 IU/L (30-200); EST GLOMERULAR FILTRATION RATE > 60 ML/MIN (60-); GLUCOSE 96 mg/dL (74-118); MAGNESIUM 1.9 MG/DL (1.3-2.1); POTASSIUM 4.1 mmol/L (3.5-5.1); SODIUM 137 mmol/L (136-145)
[2018-05-23 16:42] LABS: ALANINE AMINOTRANSFERASE < 6 IU/L (0-55)
[2018-05-23 16:51] LABS: BACTERIA,URINE MANY /HPF; EPITHELIAL CELLS,URINE RARE /LPF
[2018-05-23 16:52] LABS: AMORPHOUS SEDIMENT,URINE MODERATE (FEW)
[2018-05-23 16:56] LABS: B-TYPE NATRIURETIC PEPTIDE2 148.7 pg/mL (0-100)
[2018-05-23] MEDS ORDERED: SODIUM CHLORIDE 0.9% 1000ML 1,000 ML IV STA (17:22)
--- NOTE | 2018-05-23 18:40 | Diagnostic Imaging Report ---
EXAM: XR CHEST 1 VIEW DATE: 05/23/2018 4:01 PM INDICATION: Fall COMPARISON: 08/17/2017, no report available FINDINGS: Lines and Tubes: None Heart and Mediastinum: No acute cardiomediastinal findings. Lungs and Pleura: Minimal blunting of the costophrenic sulci. No pneumothorax or focal consolidation. Bones and Soft Tissues: No acute findings. IMPRESSION: 1. Trace effusions versus pleural scarring. Signed by: Dr. Chicho Putnam MD on 05/23/2018 6:37 PM
[2018-05-23] MEDS: METRONIDAZOLE 500MG/NS 100ML 100 ML IV SCH ×2 (18:50→22:25)
[2018-05-23] MEDS ORDERED: SODIUM CHLORIDE 0.9% 1000ML 1,000 ML IV ONE (19:30)
[2018-05-23] MEDS ORDERED: ONDANSETRON HCL INJ 2MG/ML 2ML 2 MG/ML VIAL IV PRN (19:30)
--- NOTE | 2018-05-23 19:37 | NUR ---
REPORT AND PATIENT CARE ENDORSED TO RHEA
[2018-05-23] MEDS: CEFEPIME 2 GM/NS 0.9% 100 ML 100 ML IV SCH (19:50)
--- NOTE | 2018-05-23 20:49 | NUR ---
NURSE UNAVAILABLE TO TAKE REPORT
[2018-05-23 21:40] VITALS: BP 170/78
--- NOTE | 2018-05-23 21:40 | NUR ---
patient recieved to room 287 via stretcher from the er. vss. patient awake, alert x 1 at this time. no c/o pain noted. ivf infusing without difficulty. bruising noted to bilateral upper extremities, bruise noted to right lateral knee. patient voids per urinal at times but is also incontinent per . unaware of last bm but thinks it was 05/21. admit assessment and history complete. remains at the bedside. bed alarm is on and side rails up x 2 for patient safety. instructed to call for assistance when needed.
[2018-05-24] VITALS (7 sets, daily range): BP systolic 119–205; BP diastolic 58–99
--- NOTE | 2018-05-24 | NUR ---
patient appears to be resting quietly. ivf continue to infuse without difficulty. bed alarm remain on and remains at the bedside.
--- NOTE | 2018-05-24 02:30 | NUR ---
patient voiding small amount of drk red colored urine per urinal with strong odor. report given by Melissa from ER that there was trauma with straight cath. will continue to monitor.
--- NOTE | 2018-05-24 04:00 | NUR ---
patient voiding lrg amount of red tinged urine per diaper at this time. no c/o pain noted at this time.
[2018-05-24] MEDS ORDERED: CEFEPIME HCL 2 GM VIAL ONE ×2 (04:57→05:06)
[2018-05-24] MEDS ORDERED: SODIUM CHLORIDE 0.9% 100 ML ONE ×2 (04:58→05:07)
[2018-05-24] MEDS: METRONIDAZOLE 500MG/NS 100ML 100 ML IV SCH ×3 (05:00→21:12)
--- NOTE | 2018-05-24 05:00 | NUR ---
cefepime 2 gms iv removed from med dispense x 2 due to malfunction/leaking of the 1st vial when spiked.
--- NOTE | 2018-05-24 05:50 | NUR ---
bp 198/99 hr 81 notified re: elevated bp. new medication order recieved.
[2018-05-24] MEDS: CEFEPIME 2 GM/NS 0.9% 100 ML 100 ML IV SCH ×2 (06:00→18:01)
[2018-05-24] MEDS: NIFEDIPINE CR 30 MG TAB PO SCH (06:00)
[2018-05-24 06:01] LABS: BASOPHILS % 0.4 % (0.0-1.0); EOSINOPHILS # (AUTO) 0.1 (0.0-0.4); EOSINOPHILS % 1.6 % (0.0-6.0); HEMATOCRIT 31.2 % (38.2-49.6); LYMPHOCYTES # (AUTO) 0.5 (1.0-3.2); LYMPHOCYTES % 9.5 % (18.0-39.1); MEAN CORPUSCULAR HEMOGLOBIN 26.7 pg (28-32); MEAN CORPUSCULAR HGB CONC 32.1 g/dL (31-35); MEAN CORPUSCULAR VOLUME 83.2 fL (81-99); MONOCYTES # (AUTO) 0.5 (0.2-0.8); MONOCYTES % 9.1 % (4.4-11.3); NEUTROPHILS # (AUTO) 4.5 (2.1-6.9); NEUTROPHILS % 78.9 % (38.7-80.0); PLATELET COUNT 169 x10e3/uL (140-360); RED BLOOD COUNT 3.75 x10e6/uL (4.3-5.7); RED CELL DISTRIBUTION WIDTH 15.5 % (11.7-14.4)
[2018-05-24 06:24] LABS: ALBUMIN 3.2 g/dL (3.5-5.0); ALBUMIN/GLOBULIN RATIO 1.5 (0.8-2.0); ALKALINE PHOSPHATASE 53 IU/L (40-150); ANION GAP 12.8 mmol/L (8-16); BLOOD UREA NITROGEN 36 mg/dL (7-26); BUN/CREATININE RATIO 41 (6-25); CALCIUM 8.5 mg/dL (8.4-10.2); CARBON DIOXIDE 25 mmol/L (22-29); CHLORIDE 105 mmol/L (98-107); CREATININE, SERUM 0.88 mg/dL (0.72-1.25); EST GLOMERULAR FILTRATION RATE > 60 ML/MIN (60-); GLUCOSE 83 mg/dL (74-118); POTASSIUM 3.8 mmol/L (3.5-5.1); SODIUM 139 mmol/L (136-145)
[2018-05-24 06:31] LABS: ALANINE AMINOTRANSFERASE < 6 IU/L (0-55)
--- NOTE | 2018-05-24 07:20 | NUR ---
PATIENT IN BED RESTING WITH NO RESPIRATORY DISTRESS. S/P FALL AT HOME, BRUISES TO BOTH ARMS AND LATERAL SIDE OF RIGHT KNEE. HEEL PROTECTORS IN PLACE. C/O CLOD AND WARM BLANKET PROVIDED. BED IN LOWER POSITION, CALL LIGHT AT REACH, FAMILY AT BED SIDE.
[2018-05-24] MEDS ORDERED: NIFEDIPINE 10 MG CAP PO SCH (09:00)
[2018-05-24] MEDS ORDERED: HYDROCODONE/APAP 5MG-325MG TAB PO PRN (09:15)
--- NOTE | 2018-05-24 11:20 | NUR ---
MD IN TO SEE PATIENT, NOTIFIED OF ELEVATED BLOOD PRESSURE. NO NEW ORDER RECEIVED.
[2018-05-24] MEDS: OXYBUTYNIN CHLORIDE XL 5 MG TAB PO SCH (11:57)
[2018-05-24] MEDS: PANTOPRAZOLE SOD 40 MG TABEC PO SCH (11:57)
[2018-05-24] MEDS: ASPIRIN 81 MG CHEW TAB PO SCH (11:57)
[2018-05-24] MEDS: CARBIDOPA/LEVODOPA 10/100 TAB PO SCH ×3 (11:57→21:12)
[2018-05-24] MEDS: RASAGILINE 1 MG TAB PO SCH (13:00)
--- NOTE | 2018-05-24 13:23 | History and Physical ---
DATE OF SERVICE: 05/24/2018 CHIEF COMPLAINT: Weakness, falls. HPI: This is an 88-year-old male with known history of Lewy body dementia and Parkinson disease, also hypertension, who comes into the ED yesterday with complaints of generalized weakness, fatigue and falls at home. According to the , the patient has progressively declined over the last several weeks. He also has been having decreased oral intake. On prior admissions, he has had speech therapy evals which they report he has passed. At home, according to the , he does not eat much and has progressively gotten weak. Of note, yesterday, he fell down, and she was having a difficult time trying to get her up. The endorses that she is having difficulty managing her 's care due to the multiple comorbidities. Patient sees Dr. Roth for neurology. Patient denies any chest pain, palpitations, nausea, vomiting or any recent sickness. Denies any fever at home. The patient was seen and evaluated at bedside on the medical floor, currently doing well with no other issues. Patient also had a traumatic Hernandez leading to bleeding of the urethra. REVIEW OF SYSTEMS Pertinent positives: Generalized weakness, fatigue, fall. Pertinent negatives: Denies any chest pain, palpitations, nausea, vomiting, diarrhea, dysuria, hematuria, frequency, urgency, lightheadedness, dizziness, abdominal pain, headache, shortness of breath, cough, congestion, fever, or any other complaints. The rest of the 14-point review of systems have been reviewed with the patient and are negative. ALLERGIES: IODINE. HOME MEDICATIONS 1. Aspirin 81 mg daily. 2. Lipitor 20 mg at bedtime. 3. Levodopa and carbidopa 200 and 100 one tab p.o. t.i.d. 4. Omeprazole 40 mg daily. 5. Oxybutynin 10 mg daily. 6. Azilect 1 mg p.o. daily. PAST MEDICAL HISTORY: Has Lewy body dementia, Parkinson disease, hyperlipidemia, acid reflux, neurogenic bladder. SURGICAL HISTORY: Reports none. FAMILY HISTORY: Hypertension and diabetes. SOCIAL HISTORY: No drugs. No alcohol. Does not smoke. Good social support. VITAL SIGNS: Temperature is 97.2, pulse 86, respiratory rate 18, blood pressure 205/88, satting 95% on room air. LAB FINDINGS: White count 5.6, hemoglobin 10, hematocrit 31, platelets 169. Coagulation: PT 12.5, INR 0.86, PTT 31. Chemistries: Sodium 139, potassium 3.8, chloride 105, bicarb 25, anion gap 12, BUN 36, creatinine 0.88, glucose 83, lactic acid 10, calcium 8.5. LFTs are normal. His troponins were negative. His BNP is 148. Total protein is 5.3, albumin 3.2. Urinalysis concerning for an underlying UTI. MICROBIOLOGY: Blood and urine cultures are pending. IMAGING STUDIES: Chest x-ray: Chest effusion versus pleural scarring. PHYSICAL EXAMINATION GENERAL: Not in acute distress. Alert and oriented x3. Cooperative on examination. He is very cachectic. HEENT: Head is normocephalic and atraumatic. Eyes: Pupils are equal and reactive to light bilaterally. Extraocular movements are intact bilaterally. NECK: Supple. Good range of motion. Throat with no evidence of any erythema or exudates in the posterior pharynx. Has poor dentition. PULMONARY: Clear to auscultation bilaterally. No wheezing. No rales. No rhonchi. No crackles appreciated. CARDIOVASCULAR: Positive S1, S2. No murmurs, rubs, or gallops appreciated. ABDOMEN: Soft, nondistended, and nontender to palpation. Bowel sounds are present. MUSCULOSKELETAL: Strength is 5/5 throughout. No evidence of any musculoskeletal deficit on examination. No weakness appreciated. NEUROLOGICAL: Cranial nerves II through XII are grossly intact. No evidence of any neurological deficits on exam. SKIN: Intact. Warm to touch. Good cap refill. PSYCHIATRIC: Normal affect and mood. EXTREMITIES: No edema. Good range of motion throughout. IMPRESSION 1. Generalized weakness and fatigue, likely secondary to underlying urinary tract infection. 2. Lewy body dementia. 3. Parkinson disease. 4. Medically debilitated with severe weakness. 5. Hypertensive urgency. PLAN: At this time, I will continue with IV antibiotics. Blood and urine cultures are collected and pending. Chest x-ray is found to be negative. I believe his underlying etiology is from UTI as well as worsening Parkinson's disease and Lewy body dementia. We will go ahead and consult with his neurologist to come and evaluate him as well. We are going to resume the same home medications. Put on Lovenox for DVT prophylaxis. He is going to get PT eval. I put a case management order in for [facility]. Will also get speech therapy to evaluate and treat and get an MBS if indicated. Will also consult with nutrition to calculate the patient's caloric intake. I discussed with the that due to the fact that he is very cachectic that he may truly need to be with a PEG tube, but she is adamant about no PEG tube or no feeding tube at this time. Job#: [id number]
--- NOTE | 2018-05-24 15:00 | NUR ---
Bedside Swallow Evaluation Order for bedside swallow eval noted. Pt well known to this service from previous outpatient voice therapy secondary to moderate voice disorder. PMH includes hyperlipidemia, Parkinsons Disease, benign essential hypertension, and GERD. Per spouse, they were told my Dr. Roth that pt may have Lewy-body. Pt admitted after a fall at home and pt's spouse unable to help get him off of the floor. CXR taken 05/23/18 showed trace effusions versus pleural scarring. Current diet order is cardiac diet with mechanical soft texture. Pt participate in a Modified Barium Swallow study as an outpatient 04/21/18. Pt presented with mild oral and moderate pharyngeal dysaphagia with SILENT aspiration during thin liquid trials and SILENT aspiration of pharyngeal residue during and after puree trials. Dysphagia was judged to be secondary to tongue base weakness and decreased pharyngeal constriction and reduced laryngeal elevation/excursion. It was recommended that pt be NPO with alternative nutrition/hydration. Pt and family refused peg tube placement. Since pt/family chose to continue to eat/drink, after thorough education re: consequences of continued po intake, safest diet was judged to be thin liquids with mechanical soft texture and dysphagia therapy. Pt/family declined dysphagia therapy secondary to unable to afford the co-pays. Discussed history and options for dysphagia management with pt/family at length. The patient/spouse have not changed their mind re: diet preferences or refusal of alternative means of nutrition and hydration. Reviewed ed re: possible consequences of continued po intake. Pt's spouse reported "we live to eat" and that most of the pt's quality of life "comes from mealtimes." Affirmed pt/spouse's right to choose. Because MBS was completed 1 month ago, and pt has not participated in any therapy since then, it is logical that pt's swallow skills remain the same. Dysphagia therapy can be initiated in-house and should be continued in pt's discharge facility. If you agree, please write order for Neuromuscular Electrical Stimulation (NMES) so that therapy with this modality and traditional dysphagia exercises can be initiated. Prognosis: poor for safe po secondary to aspiration of multiple consistencies per MBS 04/21/18 Recommendations: 1. mech soft diet with thin liquids per family wishes 2. dysphagia therapy with traditional exercises and NMES 3. repeat MBS following 4-6 weeks of treatments (3-4 x/week) 4. continued dysphagia therapy in d/c facility Jail Goal: Pt will tolerate least restrictive diet without s/s of aspiration to be determined by an objective eval of swallow safety Short Term Goal: Pt will participate in dysphagia therapy with baseline goals to be determined Pt/spouse will continue to participate in education.
--- NOTE | 2018-05-24 15:00 | NUR ---
PATIENT NOTED WITH BLEEDING AT THE TIP OF PENIS. MD IN TO SEE PATIENT NOTIFIED OF BLEEDING. NEW ORDER RECEIVED TO CONSULT UROLOGIST. PATIENT IN BED WITH CALL LIGHT AT REACH.
--- NOTE | 2018-05-24 15:52 | NUR ---
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 CM/SW role and care transitions discussed. Anticipated discharge plan discussed along with duration of care. CM/SW discussed patients right to make decisions in care. CM/SW work hours given. Patient lives: [facility] Admit/Transfer: ER Hospital/ER visits since last admit:JULY 2017 POA/Emergency contact: RUSTY PONCE [phone] Current/Previous Home Health: NONE PCP/Follow-up Care: DR LILIAN WELSH Current/Previous DME: ROLLATOR, WHEELCHAIR, SHOWER CHAIR Medications (referring to index hospitalization or the first time you were in the hospital) a. Were changes made in your medications when you were in the hospital on [date of index hospitalization]? No Note: If no or not sure, please skip to question d b. Did you understand the changes? Yes No Explain: c. Were you able to obtain your new medications right away? Yes No n/a SNF only Explain: d. Were you able to take your medications like the doctor wanted you to? Yes No Explain: e. Did the hospital give you an accurate, easy to understand list of medications when you left? Yes No n/a SNF only Explain: Scale of 1-10 how comfortable does patient feel with disease management in outpatient setting: IS OVERWELMED WITH INCREASED CONFUSION AND WEAKNESS AND FEELS HELPLESS Other Services: NONE Employment Status: RETIRED Areas of Concerns: CARE AFTER DISCHARGE Referral Needs: SNF REFERRAL TODAY WITH MED RESORT Education Needs: TO BE DETERMINED IMM/SHIELDS given and signed (if applicable): SHIELDS ON ADMIT IN ER Goal for discharge:TO GO TO SNF AND GET IV ABX AND P.T. AND IMPROVE TO GO HOME CM/SW left business card at the bedside with contact information. Name and number was also written on the patients whiteboard. Patient verbalized understanding of discussion. CM will follow-up with ongoing discharge and transition of care needs.
--- NOTE | 2018-05-24 15:58 | NUR ---
ORDERS FOR SNF TODAY CHOICES GIVEN TO FOR IN NETWORK WITH [facility] SHE CHOSE MED RESORT CLINICAL INFORMATION FAXED TO OLENA AT [phone] CONFIRMATION REC'D
[2018-05-24] MEDS ORDERED: ENOXAPARIN SOD INJ 40 MG/0.4 ML SYR SC SCH (17:00)
--- NOTE | 2018-05-24 18:19 | NUR ---
Nutrition Intervention Note RD Recommendation(s) for Physician: -Consider to liberalize diet to regular; diet texture per QA SOFTWARE TESTER rec -Rec Ensure Compact (chocolate) TID -Rec Ensure Pudding BID -Started 3-day calorie count ( 05/25 05/27 ) -Encourage PO and hydration -Assist with feeding as needed Plan of Care: RD following, monitoring for tolerance and adequacy, ONS rec Nutrition reason for involvement: MD Consult calorie count RD Assessment 05/24 Chart reviewed. 88yo underweight male, who is admitted for generalized weakness, fatigue and falls at home. Visited pt in the room. Pt with dementia, presented on bedside to provide hx. Per , pt was dx with aspiration PNA in July 2017 but refused PEG placement. Pt was seeing outpatient speech evaluation since discharge. Per , pt was able to tolerate solids with some occasional cough with liquids in the past month. However, pt has had decreased meal intake and weight loss over the last 6 months. thinks pt might have lost ~ 15+lbs since July 2017. Pt has some missing teeth and prefers softer foods. No nausea or vomiting episode reported. QA SOFTWARE TESTER has been consulted for swallow eval. is adamant about no PEG tube or no feeding tube at this time. RD recommended oral nutrition supplements and is agreeable with rec. Will continue to monitor and follow. Principal Problems/Diagnoses: 1. Generalized weakness and fatigue, likely secondary to underlying urinary tract infection. 2. Lewy body dementia. 3. Parkinson disease. 4. Medically debilitated with severe weakness. 5. Hypertensive urgency. PMH: dementia, Parkinson, HTN, HLD, acid reflux, neurogenic bladder GI: abd flat, soft, non-tender, LBM- 05/21 per Skin: intact Labs: (05/24) BUN 36 H Meds: protonix, IV abx, IVF Ht: 68in Wt: 104lb BMI: 15.8kg/m2 IBW: 154lb Malnutrition Evaluation (05/24/18) The patient meets criteria for unspecified SEVERE protein-calorie malnutrition. Energy intake: <75% of estimated energy requirements for >3 months Weight loss: >10% in 6 months (Chronic) Fat loss: Severe protrusion of clavicle and acromion process, minimal fat over triceps Muscle loss: Severe temporal depression Supporting Evidence: Fluid accumulation: n/a Functional Status: measurably reduced Nutrition Prescription (Diet Order): cardiac diet (mechanical soft) Estimated Nutritional Needs: Calories: 1410 1645kcal(30-35kcal/kg/d) Weight used: current BW Protein: 71 94g(1.5-2g/kg/d) Weight used: current BW Diet Adequacy: Not meeting calorie needs, Not meeting protein needs Diet Education Needs Assessment: Diet education indicated, but patient not appropriate for education at this time. Nutrition Care Level: mod Nutrition Diagnosis: Inadequate oral intake related to chronic illness as evidenced by poor PO intake and weight loss. Goal: Patient will meet 75-100% of estimated needs by follow up Progress: N/A Interventions: Texture-modified diet, Commercial beverage and foods Monitoring/Evaluation: Total energy intake, Total protein intake, Modified diet, Liquid supplement, Weight change Signed: Radha Berry MS, RD, LD
--- NOTE | 2018-05-24 18:55 | NUR ---
PATIENT'S DAUGHTER STATED THAT HE IS A DNR. COPY OF LIVING IN THE CHART. REPORT GIVEN TO ON COMING NURSE.
[2018-05-24] MEDS: ATORVASTATIN 20 MG TAB PO SCH (21:12)
[2018-05-24] MEDS ORDERED: SODIUM CHLORIDE 0.9% 250ML 250 ML ONE (21:59)
[2018-05-25] VITALS (7 sets, daily range): BP systolic 122–148; BP diastolic 58–87
[2018-05-25] MEDS: METRONIDAZOLE 500MG/NS 100ML 100 ML IV SCH (04:53)
[2018-05-25 05:20] LABS: BASOPHILS % 0.6 % (0.0-1.0); EOSINOPHILS % 0.9 % (0.0-6.0); HEMOGLOBIN 9.9 g/dL (14.0-18.0); LYMPHOCYTES # (AUTO) 0.5 (1.0-3.2); LYMPHOCYTES % 14.6 % (18.0-39.1); MEAN CORPUSCULAR HEMOGLOBIN 26.8 pg (28-32); MEAN CORPUSCULAR VOLUME 81.3 fL (81-99); MONOCYTES # (AUTO) 0.4 (0.2-0.8); MONOCYTES % 11.6 % (4.4-11.3); NEUTROPHILS # (AUTO) 2.4 (2.1-6.9); NEUTROPHILS % 71.7 % (38.7-80.0); PLATELET COUNT 145 x10e3/uL (140-360); RED BLOOD COUNT 3.69 x10e6/uL (4.3-5.7); RED CELL DISTRIBUTION WIDTH 15.9 % (11.7-14.4)
[2018-05-25 05:44] LABS: ANION GAP 11.2 mmol/L (8-16); BLOOD UREA NITROGEN 21 mg/dL (7-26); BUN/CREATININE RATIO 28 (6-25); CALCIUM 8.6 mg/dL (8.4-10.2); CARBON DIOXIDE 25 mmol/L (22-29); CHLORIDE 101 mmol/L (98-107); CREATININE, SERUM 0.75 mg/dL (0.72-1.25); EST GLOMERULAR FILTRATION RATE > 60 ML/MIN (60-); GLUCOSE 91 mg/dL (74-118); POTASSIUM 3.2 mmol/L (3.5-5.1); SODIUM 134 mmol/L (136-145)
[2018-05-25] MEDS: CEFEPIME 2 GM/NS 0.9% 100 ML 100 ML IV SCH (05:55)
--- NOTE | 2018-05-25 06:46 | NUR ---
CALLED DR. ALBERT AND LEFT MESSAGE FOR CALL BACK REGARDING PATIENT'S LABS
[2018-05-25] MEDS: PANTOPRAZOLE SOD 40 MG TABEC PO SCH (08:28)
[2018-05-25] MEDS: CARBIDOPA/LEVODOPA 10/100 TAB PO SCH ×3 (08:29→20:32)
[2018-05-25] MEDS: RASAGILINE 1 MG TAB PO SCH (08:29)
[2018-05-25] MEDS: OXYBUTYNIN CHLORIDE XL 5 MG TAB PO SCH (08:29)
[2018-05-25] MEDS: NIFEDIPINE CR 30 MG TAB PO SCH (08:29)
[2018-05-25] MEDS: ASPIRIN 81 MG CHEW TAB PO SCH (08:29)
--- NOTE | 2018-05-25 10:05 | NUR ---
ST Note: Attempted to see pt for dysphagia therapy. 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 Will f/u later time permitting.
--- NOTE | 2018-05-25 10:11 | Consultation ---
DATE OF CONSULTATION: May 25, 2018 UROLOGY CONSULTATION REASON FOR CONSULTATION: Hematuria. HISTORY OF PRESENT ILLNESS: Moisés Negron is an 88-year-old man with a longstanding epispadias. The patient apparently has Parkinson disease, which leads him to have urinary incontinence. He has been managed with oxybutynin for urge-type urinary incontinence. His dose has been 10 mg daily during this hospitalization. The patient presented to the emergency room 2 days ago with unsteadiness and a recurrent urinary tract infection. Apparently, catheterization was attempted. It is unclear whether it was a straight catheterization or whether it was a Hernandez catheter insertion attempt. In the emergency room, the patient following this catheterization attempt had gross blood per penis. Urological consultation was not sought until the patient was hospitalized for over 24 hours. The emergency room did not notify me. The patient has had a lifelong what he calls hypospadias. There has not been a history of urolithiasis or prior hematuria. PAST MEDICAL AND SURGICAL HISTORY 1. Lewy body dementia. 2. Parkinson disease. 3. Hypertension. 4. History of arm fracture in the remote past. 5. Gastroesophageal reflux disease. 6. Hyperlipidemia. CURRENT MEDICATIONS: Please refer to the MAR. ALLERGIES: IODINE. SOCIAL HISTORY: The patient smoked for about 10 years. 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 He has a supportive family at the bedside with a very supportive and knowledgeable son. He denies current smoking, ethanol and drug use. FAMILY HISTORY: Noncontributory to the active urological problems. REVIEW OF SYSTEMS: As discussed above in the history of present illness and past medical history, otherwise negative for all systems. PHYSICAL EXAMINATION GENERAL: Chronically ill-appearing, lean, elderly man sitting up in a chair eating breakfast, in no apparent distress. VITAL SIGNS: He is currently afebrile, and the vital signs are currently stable. ABDOMEN: Soft and nondistended. Nontender without costovertebral angle tenderness. Kidneys are not palpable, without hepatosplenomegaly. GENITOURINARY: Testes are descended bilaterally. Testes and epididymides bilaterally palpably normal. The patient has an uncircumcised male phallus with an epispadias--not a hypospadias--that goes proximal to the emmanuel. RECTAL: Digital rectal exam is deferred at the present time. There is gross blood in the toilet. The patient had just voided. For the remaining physical examination systems, please refer to the admission history and physical in the chart. LABORATORY STUDIES: Urine culture reveals Strep viridans. White blood cell count is low at 3360. Hemoglobin is low at 9.9. Platelets are normal at 145,000. Sodium is low at 134. Potassium is low at 3.2. Calcium is normal at 8.6. Creatinine is normal at 0.75. ASSESSMENT 1. Gross hematuria. 2. Epispadias. 3. Presumed urethral trauma. 4. Probable neurogenic bladder. 5. Urge incontinence. 6. Urinary tract infection. 7. Leukopenia. 8. Anemia. 9. Hyponatremia. 10. Hypokalemia. PLAN 1. I defer the hematological and electrolyte abnormalities to the primary team. 2. I will change the antibiotics to ampicillin based on the Strep viridans in the urine. 3. The patient's aspirin has been discontinued. 4. For some reason, the patient is still on Lovenox. Due to the fact that he is actively bleeding, I will discontinue this. 5. The patient's incontinence needs to be worked up appropriately with a urodynamic study in the office for now. I would leave the patient on oxybutynin. 6. I will order a CT stone protocol as well as a renal ultrasound. 7. I will order serial urines. 8. At some point, cystoscopic examination will be required. Thank you very much for involving us in the care of your patient. We will be happy to follow him along with you, as well as an outpatient. Job#: [id number] cc:KRISSY WELSH M.D.
[2018-05-25] MEDS: AMPICILLIN SOD 1 GM/NS 50ML 50 ML IV SCH ×2 (10:52→17:32)
--- NOTE | 2018-05-25 10:57 | Progress Note ---
DATE: May 25, 2018 MEDICINE PROGRESS NOTE SUBJECTIVE: Patient is doing well today with no issues. He did have some blood around the penis after attempt of insertion in the ER during admission. Urology was consulted for further management and care. OBJECTIVE VITAL SIGNS: Temperature is 96.5, pulse 87, respiratory rate is 18, blood pressure 136/81. GENERAL: Not in acute distress. Alert and oriented times 3. Cooperative on examination. HEENT: Head is normocephalic and atraumatic. Eyes: Pupils equal, round and reactive to light bilaterally. Extraocular movements intact bilaterally. NECK: Supple. Good range of motion. Throat with no evidence of any erythema or exudates in the posterior pharynx. Has poor dentition. PULMONARY: Clear to auscultation bilaterally. No wheezing. No rales. No rhonchi. No crackles appreciated. CARDIOVASCULAR: Positive S1 and S2. No murmurs, rubs or gallops appreciated. ABDOMEN: Soft, nondistended and nontender to palpation. Bowel sounds present. MUSCULOSKELETAL: Strength is 5/5 throughout. No evidence of any muscle deficit on examination. No weakness appreciated. NEUROLOGICAL: Cranial nerves II-XII are grossly intact. No evidence of any neurological deficits on exam. SKIN: Intact. Warm to touch. Good cap refill. PSYCHIATRIC: Normal affect and mood. EXTREMITIES: No edema. Good range of motion throughout. LABS: Show a white count of 3.3, hemoglobin 9.9, hematocrit is 30, and platelets of 145,000. Coagulation: PT 12, INR 0.86, PTT 31. Chemistry: Sodium 134, potassium 3.2, chloride 101, bicarb 25, anion gap of 11, BUN 21, creatinine is 0.75. Calcium is 8.6. Blood cultures were negative. Urine culture showed streptococcus. IMPRESSION 1. Generalized weakness with fatigue secondary to underlying urinary tract infection with streptococcus, now on ampicillin. 2. Lewy Body dementia. 3. Parkinson disease. 4. Medical debilitated with severe weakness. 5. Hypertensive urgency. PLAN: At this time, his urine culture is positive, which we will stop the Flagyl and continue with ampicillin. He continues to be on dementia medications. Neurology was consulted. PT and OT daily. Blood pressure is much improved. In relation to his hematuria, which was secondary to trauma from the Hernandez, urology was consulted. He is monitoring very closely. The patient has hypospadias according to urology, and will need to be monitored closely before being discharged. Job#: [id number] RI
--- NOTE | 2018-05-25 11:05 | Diagnostic Imaging Report ---
RENAL ULTRASOUND TECHNIQUE: Ultrasound evaluation of the KIDNEYS. Color Doppler evaluation was utilized to supplement the evaluation. Per the technologist performing the exam, the exam is limited secondary to the patient's general condition. HISTORY: Gross hematuria and UTI COMPARISON: None available. DISCUSSION: RIGHT KIDNEY: The right kidney measures 11 cm in length. The cortex measures 1.6 cm in thickness. Parenchyma is within normal limits. No hydronephrosis or solid mass lesions. LEFT KIDNEY: Limited evaluation secondary to regional bowel gas. The left kidney measures 7 cm in length. The cortex measures 1 cm in thickness. Parenchyma is within normal limits. No hydronephrosis or solid mass lesions. BLADDER: A predominantly hypoechoic somewhat ill-defined 3.4 x 3.8 x 4.4 cm mass contiguous/adjacent to the urinary bladder wall. There appears to be subtle Doppler flow within the mass on one of the images, which makes a blood clot much less likely. No ureteral jets visible within the decompressed urinary bladder, 8.1 cm prevoid and no significant residual post void. Prostate: The prostate is within normal size limits, 8.7 cc. IMPRESSION: Findings worrisome for a urinary bladder wall malignancy versus extrinsic mass contiguous with or invading the wall, which is a potential source of gross hematuria. If further imaging characterization is warranted, recommend a CT urogram. Signed by: Dr. Rob Urias D.O., M.M.M. on 05/25/2018 11:02 AM
--- NOTE | 2018-05-25 11:30 | NUR ---
unable to collect serial urine, patient incontinent of urine and voids per diaper
--- NOTE | 2018-05-25 12:33 | Diagnostic Imaging Report ---
EXAM: CT Abdomen and Pelvis WITHOUT contrast INDICATION: Gross hematuria, query renal stone. COMPARISON: Renal ultrasound 05/25/2018. TECHNIQUE: Abdomen and pelvis were scanned utilizing a multidetector helical scanner from the lung base to the pubic symphysis without administration of IV contrast. Absence of intravenous contrast decreases sensitivity for detection of focal lesions and vascular pathology. Coronal and sagittal reformations were obtained. Renal stone protocol was performed. Dose modulation, iterative reconstruction, and/or weight based adjustment of the mA/kV was utilized to reduce the radiation dose to as low as reasonably achievable. IV CONTRAST: None. RADIATION DOSE: Total DLP: 218.6 mGy*cm COMPLICATIONS: None FINDINGS: LINES and TUBES: None. LOWER THORAX: Patchy dependent atelectasis. There is a subpleural nodular opacity measuring up to 3 mm in the right middle lobe on series 3, image 1. Coronary atherosclerosis HEPATOBILIARY: No focal hepatic lesions. No biliary ductal dilation. GALLBLADDER: No radio-opaque stones or sludge. No wall thickening. SPLEEN: No splenomegaly. PANCREAS: Incompletely evaluated in the absence of IV contrast. Possibly atrophic without evidence of mass. ADRENALS: No adrenal nodules KIDNEYS/URETERS: No hydronephrosis. No cystic or solid mass lesions. No stones. GI TRACT: No abnormal distention, wall thickening, or evidence of bowel obstruction. PELVIC ORGANS/BLADDER: There is an ill-defined heterogeneous mass which appears contiguous/adjacent to the posterior aspect of the bladder. The lesion measures up to 6.2 x 3.5 x 4.1 cm (TV x AP x SI). Hyperdense layering material posteriorly within the bladder may represent hemorrhagic products. Incomplete evaluation of the bladder in the absence of IV contrast. The prostate is not well distinguished from the mass on the study. LYMPH NODES: No lymphadenopathy. VESSELS: There are extensive atherosclerotic calcifications in the aorta and branch vessels. PERITONEUM / RETROPERITONEUM: No free air or fluid. BONES/SOFT TISSUES: No acute osseous abdomen. No suspicious lytic or blastic lesions. IMPRESSION: A 6.2 cm heterogeneous mass which may arise from the posterior bladder or may be extrinsically contiguous with the bladder, incompletely evaluated on this non-contrast study. Findings are suspicious for neoplastic process and consistent with same-day ultrasound findings. Dense layering products within the bladder, consistent with hemorrhagic products in this patient with gross hematuria. Given the reported allergy to iodinated contrast, direct inspection via cystoscopy is suggested. No evidence of renal stone. A 2 mm subpleural right middle lobe pulmonary nodular opacity. While given the size, no imaging followup is routinely recommended, if there is clinical suspicion for malignancy, chest CT may be considered. Signed by: Dr. Paddy Berkowitz MD on 05/25/2018 12:30 PM
--- NOTE | 2018-05-25 12:47 | NUR ---
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
--- NOTE | 2018-05-25 14:37 | NUR ---
CALL FROM OLENA AT [facility] STATING PT HAS BEEN APPROVED TO GO TO [facility] ROOM [address] RI[address] ALBERT AND DR ESCOBEDO AUTH WILL ON SATURDAY 05/27 TRANSFER WHEN CLEARED BY DR ESCOBEDO
[2018-05-25] MEDS: ATORVASTATIN 20 MG TAB PO SCH (20:32)
[2018-05-26] VITALS (7 sets, daily range): BP systolic 138–165; BP diastolic 71–88
[2018-05-26] MEDS: AMPICILLIN SOD 1 GM/NS 50ML 50 ML IV SCH ×4 (01:05→21:00)
[2018-05-26 06:56] LABS: BASOPHILS % 0.2 % (0.0-1.0); EOSINOPHILS # (AUTO) 0.1 (0.0-0.4); EOSINOPHILS % 1.3 % (0.0-6.0); HEMATOCRIT 31.2 % (38.2-49.6); LYMPHOCYTES # (AUTO) 0.6 (1.0-3.2); LYMPHOCYTES % 13.3 % (18.0-39.1); MEAN CORPUSCULAR HEMOGLOBIN 26.3 pg (28-32); MEAN CORPUSCULAR HGB CONC 32.1 g/dL (31-35); MEAN CORPUSCULAR VOLUME 82.1 fL (81-99); MONOCYTES # (AUTO) 0.5 (0.2-0.8); MONOCYTES % 11.8 % (4.4-11.3); NEUTROPHILS # (AUTO) 3.3 (2.1-6.9); NEUTROPHILS % 72.7 % (38.7-80.0); PLATELET COUNT 149 x10e3/uL (140-360); RED CELL DISTRIBUTION WIDTH 15.9 % (11.7-14.4)
[2018-05-26 07:13] LABS: ANION GAP 12.4 mmol/L (8-16); BLOOD UREA NITROGEN 22 mg/dL (7-26); BUN/CREATININE RATIO 28 (6-25); CALCIUM 8.9 mg/dL (8.4-10.2); CARBON DIOXIDE 27 mmol/L (22-29); CHLORIDE 102 mmol/L (98-107); EST GLOMERULAR FILTRATION RATE > 60 ML/MIN (60-); GLUCOSE 87 mg/dL (74-118); POTASSIUM 3.4 mmol/L (3.5-5.1); SODIUM 138 mmol/L (136-145)
[2018-05-26] MEDS: PANTOPRAZOLE SOD 40 MG TABEC PO SCH (07:30)
--- NOTE | 2018-05-26 07:57 | NUR ---
PT IN BED, ALERT AND AWAKE, CONFUSED AND IN ROOM.GREGG ARNOLD CALLED AND ORDERS FOR NPO DIET. NOTIFIED AND KITCHEN. ORDER IN PLACE.
--- NOTE | 2018-05-26 08:44 | NUR ---
CALL PLACED TO DR ESPINAL BY STACI DONOVAN RN @ [phone]
--- NOTE | 2018-05-26 08:46 | NUR ---
DR. ESCOBEDO UPDATED OF PT CONDITION, ORDERS TO MAINTAIN NPO STATUS WHILE WE MONITOR PT AND SEE WHAT DR. ALBERT FINDS.
[2018-05-26] MEDS: OXYBUTYNIN CHLORIDE XL 5 MG TAB PO SCH (09:00)
[2018-05-26] MEDS: RASAGILINE 1 MG TAB PO SCH (09:13)
[2018-05-26] MEDS: NIFEDIPINE CR 30 MG TAB PO SCH (09:14)
[2018-05-26] MEDS: CARBIDOPA/LEVODOPA 10/100 TAB PO SCH ×3 (09:14→21:00)
--- NOTE | 2018-05-26 10:00 | Diagnostic Imaging Report ---
EXAMINATION: Head CT HISTORY: Dementia, Parkinson's disease, seizure-like activity COMPARISON: Head CT of 08/17/2017 TECHNIQUE: Multidetector axial images were obtained without contrast from the foramen magnum to the vertex . The images were reconstructed using brain and bone algorithms. Thin section brain images were reformatted into coronal and sagittal planes. Image quality: Motion/streaking artifact limits the evaluation of the skull base and posterior cranial fossa. Dose modulation, iterative reconstruction, and/or weight based adjustment of the mA/kV was utilized to reduce the radiation dose to as low as reasonably achievable. FINDINGS: Parenchyma: 1. Unchanged a few scattered white matter hypodensities, most likely age related minimal chronic vascular ischemic changes. 2. No mass or hemorrhage. No CT evidence of acute territorial vascular insult. Extra-axial spaces:No abnormal density. No extra-axial fluid collections Brain volume: Normal for age. Ventricles: No hydrocephalus or displacement. Arteries: No density suggestive of thrombus. Dural sinuses: No abnormal density. Extra-axial spaces: No abnormal density. Foramen magnum: No mass, Chiari malformation, or basilar invagination. Sella: No obvious mass. Paranasal/mastoid sinuses: Improved opacification of the left greater than right maxillary and ethmoidal sinuses. Persistent small retention cysts in the maxillary sinuses. Skull/Scalp: No lytic or blastic lesions. No fractures. IMPRESSION: 1. No acute intracranial hemorrhage or cortical infarcts. 2. Stable minimal chronic microvascular ischemic changes, when compared to head CT on 08/17/2017. Signed by: Dr. Urszula Vega M.D. on 05/26/2018 9:56 AM
[2018-05-26] MEDS ORDERED: POTASSIUM CHLORIDE 20MEQ/100ML 200 ML IV ONE (10:15)
[2018-05-26] MEDS ORDERED: SODIUM CHLORIDE 0.9% 500ML 500 ML IV ONE (10:15)
--- NOTE | 2018-05-26 10:30 | Progress Note ---
DATE: May 26, 2018 MEDICINE PROGRESS NOTE SUBJECTIVE: Patient had a rapid response this morning due to a syncopal episode and concerning for underlying seizure-like activity. Patient looks severely dehydrated on exam. Son yesterday reports that he was trying to get his father to drink but he did not drink enough fluids. He is currently doing well. I evaluated him with no issues. He denies any chest pain, palpitations, lightheadedness, dizziness, or any other complaints. There is no evidence of any seizure-like activities, stroke-like symptoms or any evidence of any weakness anywhere. OBJECTIVE VITAL SIGNS: Temperature is 96.8, pulse 82, respiratory rate is 18, blood pressure 165/88, pulse ox 98% on room air. GENERAL: Not in acute distress. Alert and oriented x3. Cooperative on examination. HEENT: Head is normocephalic and atraumatic. Eyes: Pupils equal, round and reactive to light bilaterally. Extraocular movements intact bilaterally. NECK: Supple. Good range of motion. Throat with no evidence of any erythema or exudates in the posterior pharynx. Has poor dentition. PULMONARY: Clear to auscultation bilaterally. No wheezing. No rales. No rhonchi. No crackles appreciated. CARDIOVASCULAR: Positive S1 and S2. No murmurs, rubs or gallops appreciated. ABDOMEN: Soft, nondistended and nontender to palpation. Bowel sounds present. MUSCULOSKELETAL: Strength is 5/5 throughout. No evidence of any muscle deficit on examination. No weakness appreciated. NEUROLOGICAL: Cranial nerves II-XII are grossly intact. No evidence of any neurological deficits on exam. SKIN: Intact. Warm to touch. Good cap refill. PSYCHIATRIC: Normal affect and mood. EXTREMITIES: No edema. Good range of motion throughout. LAB FINDINGS: Show white count is 4.5, hemoglobin 10, hematocrit 31, platelets of 149. Coagulation: PT 12, INR 0.86, PTT 31. Chemistry: sodium 138, potassium is 3.4, chloride 102, bicarb 27, anion gap of 12, BUN is 22, creatinine is 0.8, glucose is 87, calcium 8.9. MICROBIOLOGY: Urine culture is consistent with Streptococcus viridans. Blood cultures were negative. IMAGING STUDIES: CT brain stat has been ordered. IMPRESSIONS 1. Generalized weakness with fatigue secondary to underlying urinary tract infection with streptococcus, now on ampicillin. 2. Lewy Body dementia. 3. Parkinson disease. 4. Medical debilitated with severe weakness. 5. Hypertensive urgency. 6. Syncopal episode, likely secondary to dehydration from decreased oral intake. 7. [id number]. PLAN: At this time, patient was made DNR per who is at bedside. Nurse was present, Kati, when we discussed this with the . He currently has appropriate paperwork in the chart. DNR has been changed into the system now. It seems like his syncopal episode occurred from dehydration. He looks severely dehydrated. He will get a normal saline bolus of 500 mL IV x1. Start him on a maintenance rate. He is scheduled to have a cystoscopy later today. EKG showed no acute findings. We will get a set of troponins. I do not feel like this was seizure-like activity. It feels like the patient may have had a vasovagal attempt and led hypoxia leading to his shaking that was described by the staff that lasted for a few seconds. Neurology is already consulted. They will come and evaluate him, but I feel like it is less likely to be seizure-like activity. Will get a.m. labs. Replace potassium. Get an EKG. Get a set of troponins. Stat CT brain is pending and has been ordered. He continues to be n.p.o. for procedure. We are going to get a.m. labs. Job#: [id number] MARIA GUADALUPE
[2018-05-26] MEDS ORDERED: SODIUM CHLORIDE 0.9% 100 ML ONE (16:18)
[2018-05-26] MEDS ORDERED: FENTANYL CITRATE/PF 100MCG/2 ML INJ ONE ×2 (16:19→18:51)
--- NOTE | 2018-05-26 16:29 | NUR ---
RTF and PASRR are in packet at nurses station. Copy of PASRR placed in patient chart
[2018-05-26] MEDS ORDERED: IOPAMIDOL 610MG/1ML 300 MG/ML VIAL IV ONE (17:16)
[2018-05-26] MEDS ORDERED: BELLADONNA/OPIUM 30 MG SUPP RC ONE (17:52)
[2018-05-26] MEDS ORDERED: DEXAMETHASONE SOD PHOS INJ 4 MG/ML VIAL ONE (18:13)
[2018-05-26] MEDS ORDERED: SEVOFLURANE INHAL SOLN 250 ML PEN BTL ONE (18:13)
[2018-05-26] MEDS ORDERED: LIDOCAINE HCL 2% LOCAL INJ 5 ML SDV VIAL INJ ONE (18:13)
[2018-05-26] MEDS ORDERED: PHENYLEPHRINE HCL 1% 10 MG/ML VIAL ONE (18:13)
[2018-05-26] MEDS ORDERED: ONDANSETRON HCL INJ 2MG/ML 2ML 2 MG/ML VIAL ONE (18:13)
[2018-05-26] MEDS ORDERED: ETOMIDATE 2 MG/ML 10 ML INJ IV ONE (18:13)
[2018-05-26] MEDS ORDERED: MEPERIDINE HCL INJ 25 MG/ML VIAL ONE (19:04)
--- NOTE | 2018-05-26 19:10 | NUR ---
Patient arrived on unit via hospital bed from PACU s/p Cystoscopy with retrograde pyelogram by Dr. Atul Stein. Hernandez (15fr) in place draining bloody urine. Hernandez being flushed with 60ml normal saline Q6hr or prn per MD order. Family at bedside visiting. planning to stay with patient tonight. Patien alert to self only. Bed alarm active. Call rouse within reach. IVF running (NS @100ml/hr).
[2018-05-26] MEDS: SODIUM CHLORIDE 0.9% 1000ML 1,000 ML IV SCH (21:00)
[2018-05-26] MEDS: ATORVASTATIN 20 MG TAB PO SCH (21:00)
--- NOTE | 2018-05-26 23:00 | NUR ---
Oliveira flushed with 60ml Normal saline. Urine (bloody to pink tinged) flowing freely to oliveira bag. No clots observed.
[2018-05-27] VITALS (7 sets, daily range): BP systolic 114–180; BP diastolic 59–88
--- NOTE | 2018-05-27 | NUR ---
Spoke with regarding lab (Troponin) due at this time. requested to decline on drawing blood since patient is resting. requested to let pt sleep at this time. Laboratory aware of this request.
--- NOTE | 2018-05-27 01:00 | NUR ---
One more dose (20meq) IV KCL given to patient per MD order.
[2018-05-27] MEDS: AMPICILLIN SOD 1 GM/NS 50ML 50 ML IV SCH ×3 (01:35→17:16)
--- NOTE | 2018-05-27 03:00 | NUR ---
Irrigated oliveira with 60ml NS per MD order. Few blood clots noted drained in oliveira bag.
[2018-05-27] MEDS: SODIUM CHLORIDE 0.9% 1000ML 1,000 ML IV SCH ×2 (06:20→20:00)
[2018-05-27 07:08] LABS: BASOPHILS % 0.2 % (0.0-1.0); HEMOGLOBIN 11.1 g/dL (14.0-18.0); LYMPHOCYTES # (AUTO) 0.6 (1.0-3.2); LYMPHOCYTES % 10.4 % (18.0-39.1); MEAN CORPUSCULAR HEMOGLOBIN 27.2 pg (28-32); MEAN CORPUSCULAR HGB CONC 32.6 g/dL (31-35); MEAN CORPUSCULAR VOLUME 83.3 fL (81-99); MONOCYTES # (AUTO) 0.4 (0.2-0.8); MONOCYTES % 7.1 % (4.4-11.3); NEUTROPHILS # (AUTO) 4.9 (2.1-6.9); NEUTROPHILS % 81.5 % (38.7-80.0); PLATELET COUNT 144 x10e3/uL (140-360); RED BLOOD COUNT 4.08 x10e6/uL (4.3-5.7); RED CELL DISTRIBUTION WIDTH 15.9 % (11.7-14.4)
[2018-05-27 07:28] LABS: ANION GAP 15.9 mmol/L (8-16); BLOOD UREA NITROGEN 22 mg/dL (7-26); BUN/CREATININE RATIO 28 (6-25); CALCIUM 8.8 mg/dL (8.4-10.2); CARBON DIOXIDE 23 mmol/L (22-29); CHLORIDE 104 mmol/L (98-107); CREATININE, SERUM 0.78 mg/dL (0.72-1.25); EST GLOMERULAR FILTRATION RATE > 60 ML/MIN (60-); GLUCOSE 101 mg/dL (74-118); POTASSIUM 4.9 mmol/L (3.5-5.1); SODIUM 138 mmol/L (136-145)
[2018-05-27] MEDS: PANTOPRAZOLE SOD 40 MG TABEC PO SCH (08:58)
[2018-05-27] MEDS: RASAGILINE 1 MG TAB PO SCH (08:58)
[2018-05-27] MEDS: CARBIDOPA/LEVODOPA 10/100 TAB PO SCH ×3 (08:59→21:21)
[2018-05-27] MEDS: OXYBUTYNIN CHLORIDE XL 5 MG TAB PO SCH (08:59)
[2018-05-27] MEDS: NIFEDIPINE CR 30 MG TAB PO SCH (08:59)
--- NOTE | 2018-05-27 11:06 | NUR ---
CM communication received, as per MD patient is able to go to SNF today with Hernandez in place w/irrigation and aspiration of Hernandez. RN is aware of approved discharge and has viewed RTF in discharge packet.
--- NOTE | 2018-05-27 12:26 | NUR ---
Dr. Stein put in order this morning that it is okay to discharge pt to SNF and continue oliveira irrigation at SNF. Dr. Sharp here to see pt and states that pt is still having too much hematuria and is putting discharge on hold. Dr. Oliveira is here and Dr. Sharp have discussed and agreed that discharge is on hold. Family at bedside and made aware.
--- NOTE | 2018-05-27 12:29 | NUR ---
As per RN, discharge has now been placed on hold by covering MD. H Addendum: 05/27/18 at 1233 by CAROLINE DURAN CM MD placed hold on discharge due to the urine in patient's blood.
[2018-05-27] MEDS ORDERED: DOCUSATE SODIUM 100 MG CAP PO ONE (13:00)
[2018-05-27] MEDS ORDERED: CITRATE OF MAGNESIA 300ML BOTTLE PO ONE (13:00)
--- NOTE | 2018-05-27 13:05 | Progress Note ---
DATE: May 27, 2018 MEDICINE PROGRESS NOTE SUBJECTIVE: Spoke with urology, recommends monitoring overnight due to his urine being very bloody in the Hernandez. OBJECTIVE VITAL SIGNS: Temperature is 96.7, pulse 72, respiratory rate is 16, blood pressure 154/82, pulse ox 98% on 2 liters on nasal cannula. GENERAL: Not in acute distress. Alert and oriented x3. Cooperative on examination. HEENT: Head is normocephalic and atraumatic. Eyes; pupils equal, round and reactive to light bilaterally. Extraocular movements intact bilaterally. NECK: Supple. Good range of motion. Throat with no evidence of any erythema or exudates in the posterior pharynx. Has poor dentition. PULMONARY: Clear to auscultation bilaterally. No wheezing. No rales. No rhonchi. No crackles appreciated. CARDIOVASCULAR: Positive S1 and S2. No murmurs, rubs or gallops appreciated. ABDOMEN: Soft, nondistended and nontender to palpation. Bowel sounds present. MUSCULOSKELETAL: Strength is 5/5 throughout. No evidence of any muscle deficit on examination. No weakness appreciated. NEUROLOGICAL: Cranial nerves II through XII are grossly intact. No evidence of any neurological deficits on exam. SKIN: Intact. Warm to touch. Good cap refill. PSYCHIATRIC: Normal affect and mood. EXTREMITIES: No edema. Good range of motion throughout. LAB FINDINGS: Show white count 5.9, hemoglobin 11, hematocrit 34, and platelets of 144. Chemistries; sodium 138, potassium 4.0, chloride 104, bicarb 23, anion gap of 16, BUN is 22, creatinine is 0.78, glucose is 101. MICROBIOLOGY: Urine culture showed Streptococcus viridans. IMPRESSION 1. Generalized weakness with fatigue secondary to underlying urinary tract infection with Streptococcus, on ampicillin. 2. Lewy body dementia. 3. Parkinson's disease. 4. Medically debilitated with severe weakness. 5. Hypertensive urgency. 6. Syncopal episode, likely secondary to dehydration from decreased oral intake. 7. Do not resuscitate. PLAN: At this time, patient continued to have bloody urine in the Hernandez. Discussed with urology, recommends monitoring overnight. We will keep the patient overnight with irrigation. Prescriptions have been written in the chart in the event he leaves tomorrow. At this time, his other labs had been reviewed and stable. He is constipated. We are going to go ahead and order Colace and magnesium citrate. Job#: [id number] NEIL
[2018-05-27] MEDS: HYDRALAZINE HCL 20 MG/ML VIAL IV PRN (16:08)
--- NOTE | 2018-05-27 17:50 | Operative Report ---
DATE OF PROCEDURE: May 26, 2018 PREOPERATIVE DIAGNOSIS: Gross hematuria. POSTOPERATIVE DIAGNOSIS: Gross hematuria. OPERATIONS PERFORMED 1. Cystourethroscopy with bilateral ureteral catheterization and retrograde ureteropyelography. 2. Interpretation of retrograde ureteropyelography. 3. Supervision of fluoroscopy, no radiologist present. 4. Interpretation of cystography. ANESTHESIA: General. COMPLICATIONS: None. CLINICAL SUMMARY: Moisés Negron is an 88-year-old man who was seen earlier during this hospitalization due to gross hematuria. The patient had a what sounds like traumatic urethral catheterization attempt. He has a longstanding hypospadias and has not had any management. His gross hematuria persisted despite discontinuation of blood thinners. He is brought to the operating room for evaluation. He and the family are aware of the risks of bleeding, infection, injury to adjacent structures, need for additional procedures and elected to proceed. OPERATIVE PROCEDURE IN DETAIL: Informed consent was verified. Moisés Negron was properly identified, taken to operating room, placed on the cystoscopy table in the supine position. Anesthesia was uneventfully begun. The patient was carefully and gently repositioned in the dorsal lithotomy position with all pressure points carefully well padded. His genitalia were prepared and draped in the usual sterile fashion. A 22.5-Bahraini cystoscope sheath with the visual obturator in place was atraumatically inserted into the epispadiac urethral meatus. It was guided down the urethra to the bulbar region where there was erythema consistent with Hernandez catheterization attempt trauma. We passed to the normal sphincteric region and entered the prostate bed. There was a normal-appearing verumontanum and there appeared to be wide open prostatic bed with no bilobar prostatic hypertrophy. This is consistent with the appearance of someone who has had a previous transurethral resection of the prostate. The bladder neck was wide open, but from the posterior bladder neck, there was a fairly prominent and friable mass consistent with a median lobe of the prostate. Both ureteral orifices were identified just behind this prominent median lobe and were noted in their anatomical position. Grade 1 trabeculations were noted throughout the bladder. There were no tumors. There were no stones. Dark old-appearing blood was evacuated from the bladder. Very careful panendoscopy of the urinary bladder was performed twice, both with 30 and 70-degree lenses. There were no tumors. There were no stones. There were no suspicious lesions. There were no true diverticula. An 8-Bahraini catheter was used to cannulate each ureter and retrograde ureteral pyelograms were performed. INTERPRETATION OF RETROGRADE URETEROPYELOGRAPHY: Contrast was instilled in a retrograde fashion bilaterally. There were no tumors, no stones, and no diverticula. Unobstructed drainage was observed bilaterally fluoroscopically. Both pyelocalyceal systems were delicate. Prompt drainage was noted bilaterally. The cystoscope was withdrawn. A large-bore Hernandez catheter was placed. Due to the TURP appearance, 30 mL of water was placed in the 30 mL balloon. The catheter was irrigated to and fro to ensure it worked properly. Contrast was injected in the catheter, performing cystography. INTERPRETATION OF CYSTOGRAPHY: The bladder wall was smooth. There was no evidence of the vesicoureteric reflux. There were no true diverticula. The Hernandez catheter was in good position with the balloon within the bladder. No significant bladder wall abnormalities could be appreciated. A belladonna and opium suppository was placed, revealing a large flat prostate that is difficult to estimate its size, but there were no nodules palpable. The patient was then uneventfully reversed from anesthesia and taken to recovery room in stable condition. There were no complications during the procedure. He tolerated the procedure well. PLAN 1. Leave the Hernandez catheter in place for least 1 to 2 weeks. 2. Continue culture-specific antibiotics, changing to oral antibiotics is a viable option. 3. From urological standpoint as long as the patient is medically stable, he may be transferred to a [facility] facility as originally planned on May 27, 2018. 4. Ongoing urological followup is a must. 5. Should hematuria persists, vaporization or resection of the median lobe of the prostate should be considered as a primary option. 6. The CT scanning that was performed during this hospitalization showed rather dramatic stool retention within the patient's colon. I defer the addressing of such constipation issues to the admitting physician. Job#: [id number] PKU cc:DR. KRISSY WELSH
--- NOTE | 2018-05-27 19:10 | NUR ---
Patient visited in room during nursing rounds. Patient alert and oriented x1. Pt appear comfortable and at bedside states pt has been less aggravated today and more lucid. Hernandez (15fr) in place draining dark gary colored urine. Hernandez being flushed with 60ml normal saline Q6hr or prn per MD order. No clots observed during flush. Bed alarm active. Call rouse within reach. IVF running (NS @100ml/hr).
--- NOTE | 2018-05-27 21:20 | NUR ---
Hernandez irrigated with 60ml NS per MD order. Urine flowing freely and no clots observed. Urine dark gary in color.
[2018-05-27] MEDS: ATORVASTATIN 20 MG TAB PO SCH (21:21)
[2018-05-28] VITALS (8 sets, daily range): BP systolic 107–129; BP diastolic 59–72
--- NOTE | 2018-05-28 02:27 | Discharge Summary ---
AUTHOR CANCELS THE DICTATION. FINAL DISCHARGE DIAGNOSES: 1. Generalized weakness secondary to underlying urinary tract infection with streptococcus infection. 2. Lewy body dementia. 3. Dehydration due to decreased oral intake. 4. Parkinson's disease. 5. Medically debilitated with severe weakness. 6. Hypertensive urgency, resolved. 7. Syncopal episode likely secondary to dehydration from decreased oral intake. 8. Do not resuscitate. CONSULTANTS: 1. Urology. 2. Neurology. VITAL SIGNS: Temperature is 96.7, pulse 72, respiratory rate is 16, blood pressure 154/82, pulse ox is 100%. He is on 2 liters nasal cannula. LAB FINDINGS: White count was 5.9, hemoglobin 11, hematocrit 34, and platelets of 144. Coagulation; PT 12, INR 0.86, and PTT 31. Chemistry; sodium 138, potassium 4.9, chloride 104, bicarb 23, anion gap of 15, BUN was 23, creatinine was 0.78, glucose was 101, and calcium was 8.8. Troponins were all negative. Urinalysis concerning for UTI. Urine culture, Streptococcus viridans. Blood cultures were negative. IMAGING STUDIES: Chest x-ray was found to showed trace effusion versus pleural scarring. Renal ultrasound showed intrinsic mass contiguous with an invading wall which is potential source of gross hematuria. CT abdomen and pelvis showed a 6.2 cm heterogeneous mass which may arise from the posterior bladder which may be intrinsic and contiguous with the bladder incompletely evaluated with this noncontrast study. Findings are suspicious for neoplastic process and consistent with the same day ultrasound findings. Dense layering products within the bladder consistent with hemorrhagic products hematuria. CT brain showed no acute intracranial hemorrhage or cortical infarcts. Stable minimal chronic microvascular ischemic changes. HOSPITAL COURSE: This is an 88-year-old male who came in with underlying weakness, fatigue, and frequent falls at home. Patient has underlying Parkinson's disease and Lewy body dementia for which neurology was following as an outpatient and consulted while here in the hospital. Patient also began to have hematuria, presumed to be from underlying traumatic Hernandez for which urology was consulted. Patient had imaging studies that were concerning for underlying bladder mass. Patient underwent a cystoscopy. ANDREEA ALBERT MD Job#: [id number] RACHEL
[2018-05-28] MEDS: SODIUM CHLORIDE 0.9% 1000ML 1,000 ML IV SCH ×3 (02:30→23:21)
[2018-05-28] MEDS: AMPICILLIN SOD 1 GM/NS 50ML 50 ML IV SCH ×3 (02:30→17:15)
--- NOTE | 2018-05-28 02:30 | NUR ---
Hernandez irrigated with 60ml NS per MD order. Urine flowing freely and no clots observed. Urine dark gary in color.
[2018-05-28 07:15] LABS: BASOPHILS % 0.2 % (0.0-1.0); EOSINOPHILS # (AUTO) 0.1 (0.0-0.4); HEMATOCRIT 28.3 % (38.2-49.6); HEMOGLOBIN 9.6 g/dL (14.0-18.0); LYMPHOCYTES # (AUTO) 0.8 (1.0-3.2); LYMPHOCYTES % 16.8 % (18.0-39.1); MEAN CORPUSCULAR HEMOGLOBIN 27.6 pg (28-32); MEAN CORPUSCULAR HGB CONC 33.9 g/dL (31-35); MEAN CORPUSCULAR VOLUME 81.3 fL (81-99); MONOCYTES # (AUTO) 0.5 (0.2-0.8); MONOCYTES % 9.8 % (4.4-11.3); NEUTROPHILS # (AUTO) 3.5 (2.1-6.9); NEUTROPHILS % 71.8 % (38.7-80.0); PLATELET COUNT 132 x10e3/uL (140-360); RED BLOOD COUNT 3.48 x10e6/uL (4.3-5.7); RED CELL DISTRIBUTION WIDTH 16.4 % (11.7-14.4)
[2018-05-28 07:42] LABS: ANION GAP 10.1 mmol/L (8-16); BLOOD UREA NITROGEN 25 mg/dL (7-26); BUN/CREATININE RATIO 36 (6-25); CALCIUM 8.4 mg/dL (8.4-10.2); CARBON DIOXIDE 28 mmol/L (22-29); CHLORIDE 106 mmol/L (98-107); EST GLOMERULAR FILTRATION RATE > 60 ML/MIN (60-); GLUCOSE 84 mg/dL (74-118); POTASSIUM 4.1 mmol/L (3.5-5.1); SODIUM 140 mmol/L (136-145)
[2018-05-28] MEDS: RASAGILINE 1 MG TAB PO SCH (08:40)
[2018-05-28] MEDS: OXYBUTYNIN CHLORIDE XL 5 MG TAB PO SCH (08:40)
[2018-05-28] MEDS: PANTOPRAZOLE SOD 40 MG TABEC PO SCH (08:40)
[2018-05-28] MEDS: NIFEDIPINE CR 30 MG TAB PO SCH (08:41)
[2018-05-28] MEDS: CARBIDOPA/LEVODOPA 10/100 TAB PO SCH ×3 (08:41→21:00)
--- NOTE | 2018-05-28 12:16 | Progress Note ---
DATE: May 28, 2018 MEDICINE PROGRESS NOTE SUBJECTIVE: The patient is at baseline. He is sitting in the chair feeling much better than yesterday. His urine output is good, but he has still significant hematuria. OBJECTIVE VITAL SIGNS: Temperature is 96.6, pulse 82, respiratory rate is 20, blood pressure 120/59, pulse ox 98% on room air. GENERAL: Not in acute distress. Alert and oriented x3. Cooperative on examination. HEENT: Head is normocephalic and atraumatic. Eyes; pupils equal, round and reactive to light bilaterally. Extraocular movements intact bilaterally. NECK: Supple. Good range of motion. Throat with no evidence of any erythema or exudates in the posterior pharynx. Has poor dentition. PULMONARY: Clear to auscultation bilaterally. No wheezing. No rales. No rhonchi. No crackles appreciated. CARDIOVASCULAR: Positive S1 and S2. No murmurs, rubs or gallops appreciated. ABDOMEN: Soft, nondistended and nontender to palpation. Bowel sounds present. MUSCULOSKELETAL: Strength is 5/5 throughout. No evidence of any muscle deficit on examination. No weakness appreciated. NEUROLOGICAL: Cranial nerves II through XII are grossly intact. No evidence of any neurological deficits on exam. SKIN: Intact. Warm to touch. Good cap refill. PSYCHIATRIC: Normal affect and mood. EXTREMITIES: No edema. Good range of motion throughout. LAB FINDINGS: Show white count is 4.8, hemoglobin 9.6, hematocrit 28, and platelets of 132. Coagulation; PT 12, INR 0.86, PTT 31. Chemistries; sodium 140, potassium 4.1, chloride 106, bicarb 28, anion gap of 10, BUN is 25, creatinine is 0.7, and glucose is 84. IMPRESSION 1. Generalized weakness with fatigue secondary to underlying urinary tract infection, on ampicillin. 2. Lewy body dementia. 3. Parkinson's disease. 4. Medically debilitated with severe weakness. 5. Hypertensive urgency. 6. Syncopal episode, likely secondary to dehydration from decreased oral intake. 7. Do not resuscitate. PLAN: At this time, his Hernandez and his urine continues to be very bloody. We will continue with the Hernandez. Follow urology recommendations. The patient's authorization for custodial has , which we will reattempt tomorrow. He will be able to be discharge tomorrow if his urine output is good and he clears up from his hematuria. He continues to be constipated for which we will go ahead and add another dose of Colace 200 mg. We are going to continue to watch and monitor closely. Job#: [id number] LEONARD
[2018-05-28] MEDS ORDERED: DOCUSATE SODIUM 100 MG CAP PO ONE (12:30)
--- NOTE | 2018-05-28 19:05 | NUR ---
Patient visited in room during nursing rounds. Patient alert and oriented x1. Pt appear comfortable and less has been less aggravated at this time. Hernandez (15fr) in place draining dark gary colored urine. Hernandez being flushed with 60ml normal saline Q6hr or prn per MD order. No clots observed during flush. Bed alarm active. Call rouse within reach. IVF running (NS @100ml/hr).
[2018-05-28] MEDS: ATORVASTATIN 20 MG TAB PO SCH (21:00)
--- NOTE | 2018-05-28 21:00 | NUR ---
Patient was offered scheduled night medications (Lipitor and Sinemet) but patient refused and appear very confused and agitated. Nurse plan to stay in room with pt tonight for safety purposes and to prevent pt from pulling out oliveira and getting out of bed unattended.
--- NOTE | 2018-05-28 21:30 | NUR ---
Hernandez irrigated with 60ml NS per MD order. Urine flowing freely and no clots observed. Urine dark gary in color.
[2018-05-29] VITALS (8 sets, daily range): BP systolic 103–190; BP diastolic 61–93
[2018-05-29] MEDS: AMPICILLIN SOD 1 GM/NS 50ML 50 ML IV SCH ×3 (02:12→17:21)
--- NOTE | 2018-05-29 07:10 | NUR ---
PATIENT IS ALERT TO SELF AND IS IN STABLE CONDITION WITH NO S/S OF RESPIRATORY DISTRESS. NO PAIN VOICED. IV FLUIDS INFUSING. PINEDA IS INTACT AND DRAINING. ALLEVYN PAD APPLIED TO LOWER SACRUM AREA. TELEMETRY APPLIED. HEEL PROTECTORS APPLIED. BED ALARM ON. CALL LIGHT IS WITHIN REACH OF PATIENT, PATIENT INSTRUCTED TO CALL FOR ASSISTANCE NEEDED.
[2018-05-29] MEDS: SODIUM CHLORIDE 0.9% 1000ML 1,000 ML IV SCH (09:07)
[2018-05-29] MEDS: RASAGILINE 1 MG TAB PO SCH (09:11)
[2018-05-29] MEDS: PANTOPRAZOLE SOD 40 MG TABEC PO SCH (09:11)
[2018-05-29] MEDS: CARBIDOPA/LEVODOPA 10/100 TAB PO SCH ×3 (09:11→20:21)
[2018-05-29] MEDS: OXYBUTYNIN CHLORIDE XL 5 MG TAB PO SCH (09:11)
[2018-05-29] MEDS: NIFEDIPINE CR 30 MG TAB PO SCH (09:12)
--- NOTE | 2018-05-29 10:11 | NUR ---
DR. ALBERT ON THE UNIT- DR. ALBERT GAVE ORDER FOR PATIENT TO DISCHARGE ONCE ACCEPTED AGAIN TO MED RESORT. DR. ALBERT STATED TO LET DR. ESCOBEDO SEE THE URINE/PINEDA BAG AND PATIENT SHOULD BE ABLE TO BE DISCHARGE AFTERWARD.
--- NOTE | 2018-05-29 11:55 | NUR ---
SPOKE Paz SOARES, RN THIS AM ABOUT MOVING PT TO [facility] WHEN READY. STATES THE PT IS NOW HAVING STRAW COLORED URINE OUTPUT. STATES DR. ESCOBEDO WILL NEED TO SEE PT FIRST TO CLEAR TO TRANSFER OUT. FANY CALLED STATING [facility] WANTS THE PROCESS STARTED FOR TRANSFER. ANDREA SPOKE Paz HYATT AT [facility]. FAXED UPDATED CLINICALS TO [facility] @ [phone].
--- NOTE | 2018-05-29 12:52 | Discharge Summary ---
FINAL DISCHARGE DIAGNOSES 1. Generalized weakness and fatigue secondary to urinary tract infection. 2. Lewy body dementia. 3. Parkinson disease. 4. Medically debilitated with severe weakness. 5. Hypertensive urgency, resolved. 6. Syncopal episode, likely secondary to dehydration from decreased oral intake. 7. Do not resuscitate. 8. Hematuria, now resolved. Will continue with Hernandez on discharge. VITAL SIGNS: Temperature is 96.4, pulse 76, respiratory rate 16, blood pressure 160/80, pulse ox 97% on room air. LAB FINDINGS: White count 4.8, hemoglobin 9.6, hematocrit 28.3, platelets 132. Chemistries: Sodium 140, potassium 4.1, chloride 106, bicarb 20, anion gap 10, BUN 25, creatinine 0.7, calcium 8.4. MICROBIOLOGY: Urine culture positive for Streptococcus viridans. Blood cultures were negative. IMAGING STUDIES: Chest x-ray on admission showed trace effusion and pleural scarring. Renal ultrasound showed evidence of possible intrinsic mass in the bladder. CT abdomen and pelvis commented again on a 6.2-cm heterogeneous mass arising from the posterior bladder. It may be intrinsic to contiguous with the bladder, but the patient's cystoscopy showed no evidence of any mass according to the report. CT brain was found to be negative. HOSPITAL COURSE: This is an 88-year-old male who came into the ED after feeling very weak and fatigued with dehydration ongoing for the last several days prior to arrival to the ED. Patient was found to have underlying urinary tract infection and was started on IV antibiotics and discharged on oral antibiotics. Patient also has a known history of Lewy body dementia and Parkinson disease and has progressively declined over the last several weeks. Neurology was consulted. Medications were adjusted accordingly. Patient's overall state is relatively poor. It was discussed with neurology and the family at bedside about hospice services; but at this time, the family is considering it and still thinking about the plan of care from here on. He also had hypertensive urgency, which the medications were adjusted accordingly with much improvement in blood pressure. While in the hospital, he developed a syncopal episode secondary to dehydration and vasovagal in which he responded well with IV fluids with no issues. Patient also had underlying hematuria due to a traumatic Hernandez for which urology was consulted. Patient underwent cystourethroscopy with bilateral ureteral catheterizations and retrograde ureteral pyelography performed on 05/26/2018. At this time, there was no comment of any kind of intrinsic mass seen on CT scan. Per his recommendations, the patient is to continue with the Hernandez for 1 to 2 weeks and continue with oral antibiotics on discharge. Patient has been cleared by urology for discharge. Patient needs to follow up with urology in 2 weeks' time. On discharge, the patient was back to normal baseline. There was no more evidence of any hematuria in the Hernandez catheter. On the day of discharge, the vital signs were stable. Labs were reviewed and stable. Patient seen and evaluated and examined thoroughly on the day of discharge with no new complaints. Patient verbalized an understanding and agreed to plan of care to follow up accordingly as an outpatient with his primary care physician and urology in 1 to 2 weeks as well as neurologist in 2 weeks' time. DISCHARGE MEDICATIONS: See med reconciliation form. DISPOSITION: To long-term. CONDITION: Stable. DIET: Heart healthy. In the event of any worsening symptoms, the patient was advised to come back to the ED for further evaluation. Discharge summary took greater than 35 minutes. ANDREEA ALBERT MD Job#: [id number]
--- NOTE | 2018-05-29 17:06 | NUR ---
[facility] DISCHARGE INFORMATION PATIENT HAS BEEN ACCEPTED TO: NAME: [facility] ADDRESS: [address] [place] [address]. [id number] ACCEPTING WELDING MACHINE OPERATOR: BARBRA BUTLER MD: DR. 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
[2018-05-29] MEDS: HYDRALAZINE HCL 20 MG/ML VIAL IV PRN (17:19)
--- NOTE | 2018-05-29 17:42 | NUR ---
CALL PLACED OUT TO DR. ESCOBEDO REGARDING [facility] INFORMATION PRIOR TO DISCHARGE- AWAITING CALLBACK.
--- NOTE | 2018-05-29 19:40 | NUR ---
DR. ESCOBEDO ROUNDED ON PATIENT- DR. ESCOBEDO STATED FOR PINEDA TO STAY IN PLACE AND TO HAVE IRRIGATION SET FOR PRN STATUS. PATIENT IS SITTING UP IN THE RECLINER- IN STABLE CONDITION WITH NO S/S OF RESPIRATORY DISTRESS. NO PAIN VOICED. IV FLUIDS INFUSING. PRESENT IN ROOM. CALL LIGHT IS WITHIN REACH, INSTRUCTED TO CALL FOR ASSISTANCE NEEDED. NIGHT NURSE INFORMED TO CALL REPORT TO [facility]- REPORT GIVEN TO ONCOMING NURSE.
--- NOTE | 2018-05-29 20:00 | NUR ---
PT AWAKE, ALERT RESTING IN RECLINER. AT BEDSIDE. REPORT CALLED TO [facility] TO [facility]. AWATING FOR TRASPORT. NO OTHER NEEDS AT THIS TIME. 2100 MEDS GIVEN AT THIS ITME.
[2018-05-29] MEDS: ATORVASTATIN 20 MG TAB PO SCH (20:21)
== END 2018-05-29 22:06 | DRG 689 ==
LOC: ER 15:20 → ERHOLD 19:44 → MED/SURG3 21:40 → OBSVTOIN 05-25 08:57
PROVIDERS: ADMIT Internal Medicine; ATTEND Internal Medicine
PROC: BT141ZZ Fluoroscopy of Kidneys, Ureters and Bladder using Low Osmolar Contrast (ICD-10-PCS; 2018-05-26)
PROC: 0TJB8ZZ Inspection of Bladder, Via Natural or Artificial Opening Endoscopic (ICD-10-PCS; principal; 2018-05-26 17:19)
DX: N30.00 Acute cystitis without hematuria (principal); E43 Unspecified severe protein-calorie malnutrition; E87.1 Hypo-osmolality and hyponatremia; S37.39XA Other injury of urethra, initial encounter; Z68.1 Body mass index [BMI] 19.9 or less, adult; Z66 Do not resuscitate; R53.1 Weakness; E86.0 Dehydration; D72.819 Decreased white blood cell count, unspecified; D64.9 Anemia, unspecified; E87.6 Hypokalemia; R31.0 Gross hematuria; K21.9 Gastro-esophageal reflux disease without esophagitis; E78.5 Hyperlipidemia, unspecified; G20 Parkinson's disease; F02.80 Dementia in other diseases classified elsewhere, unspecified severity, without behavioral disturbance, psychotic disturbance, mood disturbance, and anxiety; I10 Essential (primary) hypertension; Z91.81 History of falling; Z79.82 Long term (current) use of aspirin; N31.9 Neuromuscular dysfunction of bladder, unspecified; I16.0 Hypertensive urgency; R53.81 Other malaise; Q64.0 Epispadias; N39.41 Urge incontinence; B95.4 Other streptococcus as the cause of diseases classified elsewhere; R55 Syncope and collapse
CPT/HCPCS: 36415; 70450; 71045; 74176; 74420; 76770; 80048; 80053; 81001; 82550; 82553; 82948; 83605; 83735; 83880; 84484; 85025; 85610; 85730; 87040; 87086; 93005; 96361; 97139; 99284; G0378; J0290; J0360; J0692; J1100; J1650; J2001; J2175; J2370; J2405; J3480; J7030; J7040; J7050